=== PATIENT | female | born 1965 | race Caucasian/White ===

== ENCOUNTER → 2018-07-17 15:49 | Outpatient (CLI) | payer BC, SELFPAY ==
--- NOTE | 2018-07-17 16:02 | MM_ITS ---
===MM Dig screening mamm BI w/CAD ORDERING PHYSICIAN : Denise Lechuga MD PATIENT AGE: 53 years GENDER: Female COMPARISON: Film screen mammogram February 2004 & November 2009 bilateral digital mammogram INDICATION: Routine: SCREENING. No hormones. No new complaints . previous excisional biopsy at 11:00 right breast. ... Noncontributory family history. TECHNIQUE: Standard CC and MLO images were obtained. R2 CAD reviewed. FINDINGS: Mild/Moderate density breast,, only slightly decreases sensitivity of mammography. But overall slight aggressive fatty replacement since prior studies. No suspicious nor dominant mass. No suspicious calcifications. No new findings of significant concern.. Similar overall fibroglandular patterns since previous available film screen mammogram studies\ RIGHT BREAST:Stable right breast with no significant new findings. Follow-up in one year. LEFT BREAST:No new areas of significant concern. Area of minimal density at the cc view dissipates on the axillary cc view ===== IMPRESSION: Stable bilateral mammogram. No new findings of significant concern Recommended and encouraged bilateral follow-up in one year for ongoing evaluation in this patient BI-RADS Category: 2 Benign Finding(s) RECOMMENDED FOLLOW-UP: 1YR 1 YEAR FOLLOW-UP (A letter has been sent to the patient regarding results of the study.)
--- NOTE | 2018-07-17 16:02 | XR_ITS ---
XR DEXA axial skeleton HISTORY: ITS.REASON: OSTEOPENIA ORDERING PHYSICIAN: Denise Lechuga MD PATIENT AGE: 53 years COMPARISON: None FINDINGS: The BMD measured at the Left femoral neck is 0.983 g/cm squared with a T score of -0.4. This is considered Normal according to the World Health Organization criteria. Fracture risk is Low. L1 L4 density has a normal T score of 2.6 IMPRESSION: Normal bone density with low fracture risk. Recommend follow-up exam June 2020
== END ==
PROVIDERS: PCP Family Medicine; Visit Provider Family Medicine
DX: Z12.31 Encounter for screening mammogram for malignant neoplasm of breast (principal); N60.19 Diffuse cystic mastopathy of unspecified breast; M85.89 Other specified disorders of bone density and structure, multiple sites
CPT/HCPCS: 77067; 77080

== ENCOUNTER → 2021-11-03 09:58 | Outpatient (CLI) | payer BC, SELFPAY ==
--- NOTE | 2021-11-03 10:05 | MM_ITS ---
PROCEDURE INFORMATION: Exam: MG Bilateral Screening 3D Mammography Exam date and time: 11/03/2021 9:59 AM Age: 56 years old Clinical indication: Screening examination TECHNIQUE: Imaging protocol: Bilateral Screening tomosynthesis and 2D mammography including computer-aided detection (CAD) when performed. COMPARISON: MG [facility] MM Dig screening mamm BI w/CAD 07/17/2018 4:16 PM FINDINGS: MAMMOGRAPHY: Breast composition: There are scattered areas of fibroglandular density. Mass: None. Architectural distortion: None. Calcifications: No suspicious calcifications. Asymmetric density: None. Skin thickening: None. Axillary adenopathy: None. IMPRESSION: No mammographic evidence of malignancy. Annual screening is recommended unless otherwise clinically indicated. ASSESSMENT: BI-RADS Category 1: Negative
--- NOTE | 2021-11-03 10:29 | XR_ITS ---
FINAL REPORT TECHNIQUE: Bone densitometry calculations of the lumbar spine and right hip were obtained. CLINICAL HISTORY: . post menopausal FINDINGS: DEXA BONE DENSITY AXIAL SKELETON Using L1-4, the bone mineral density of the spine is 0.198 g/cm2, corresponding to T-score of 1.4. Using the right hip, the bone mineral density of the femoral neck is 0.811 g/cm2, corresponding to a T-score of -0.3 NOTE: T-score: Standard deviation compared with peak bone mass of young adult mean. *Following the recommendations of the International Society of Bone densitometry, classification of hip BMD is based on the lower of two T-scores; total hip or femoral neck. IMPRESSION: Normal bone mineral density of the lumbar spine and hip. Reviewed, Interpreted and Dictated by Phill Davis III, MD Transcribed by Tanya Underwood Authenticated and [facility]
== END ==
PROVIDERS: PCP Family Medicine; Visit Provider Family Medicine
DX: Z12.31 Encounter for screening mammogram for malignant neoplasm of breast (principal); Z78.0 Asymptomatic menopausal state
CPT/HCPCS: 77063; 77067; 77080

== ENCOUNTER → 2022-06-08 15:46 | Outpatient (CLI) | payer BC, SELFPAY ==
[2022-06-08 16:21] LABS: Potassium 4.5 mmoL/L (3.5-5.1)
== END ==
PROVIDERS: PCP Family Medicine; Visit Provider Ophthalmology
DX: Z01.812 Encounter for preprocedural laboratory examination (principal)
CPT/HCPCS: 36415; 84132

== ENCOUNTER 2023-12-25 08:48 | Outpatient (CLI) | payer BC, SELFPAY ==
--- NOTE | 2023-12-25 | CA_ITS ---
APPROVED REPORT Exam: Exercise Treadmill Technologist: Diane Banuelos Ht: 5 ft 4 in Wt: 190 lbs BSA: 1.91 m2 HR: 67 bpm BP: 118/85 mmHg Indications: Essential Hypertension Medical History Medications: Levothyroxine,,,,, Metoprolol,,,,, CeleBREX,,,,, BuPROPRION,,,,, Stress Test Details Test: Jamie Protocol HR Resting HR: 69 bpm Max Heart Rate (APMHR): 162 bpm Max HR Achieved: 134 bpm Target HR (85% APMHR): 138 bpm % of APMHR: 83 Recovery HR: 74 bpm HR response to stress: Blunted HR response to stress BP Resting BP: 118.0/85.0 mmHg Max BP: 155.0/84.0 mmHg Recovery BP: 130.0/72.0 mmHg BP response to stress: Normal blood pressure response to stress. ECG Resting ECG: NSR Stress EC mm upsloping ST depression Arrhythmia: None Clinical Exercise duration: 06:19 min Highest Stage Achieved: Exercise capacity: 7.0 METs Overall Exercise Capacity for Age: Average Stress ECG Conclusion Subotiomal and non-diagnostic study due to inability to achieve target HR. Symptoms: Chest tightness Arrhythmias/Ectopy: None ST-T Changes: [address] depression. Conclusion: This study is considered suboptimal and non-diagnostic due to inability to achieve target HR. ST changes equivocal for ischemia at peak stress. If clinically indicated, alternative evaluation with pharmacologic nuclear stress test is recommended. Test Summary REST . . . . . . . Sitting REST . . . . . . . Standing REST 03:23 0.0 0.0 69 . 118/ 85 . . Stage 1 01:00 0.0 0.0 69 . . . . Stage 1 . . . . . . . Protocol changed to Manual Treadmill Stage 1 . . . . . . . Protocol changed to Jamie Stage 1 02:00 10.0 1.7 78 . . . . Stage 1 03:00 10.0 1.7 98 . . . . Stage 2 01:00 12.0 2.5 112 . 120/ 82 . . Stage 2 02:00 12.0 2.5 120 . 120/ 82 . . Stage 2 03:00 12.0 2.5 127 . 138/ 86 . . Stage 3 . . . . . . . Protocol changed to Manual Treadmill Stage 3 00:19 14.0 3.3 129 . . . Stop exercise at 06:19 RECOVERY 01:00 0.0 0.0 103 . 155/ 84 . . RECOVERY 02:00 0.0 0.0 88 . 155/ 84 . . RECOVERY 03:00 0.0 0.0 77 . 141/ 73 . . RECOVERY 04:00 0.0 0.0 77 . 141/ 73 . . RECOVERY 05:00 0.0 0.0 78 . 130/ 72 . . RECOVERY 05:46 0.0 0.0 82 . 130/ 72 . . Electronically signed by : Izzy Griffin MD 12/31/2023 09:44:30
== END 2023-12-25 23:59 | disposition home or self-care (01) ==
LOC: RT 08:49
PROVIDERS: PCP Family Medicine; Visit Provider Family Medicine
DX: I10 Essential (primary) hypertension (principal)
CPT/HCPCS: 93017; 93018

== ENCOUNTER 2023-12-25 09:35 | Emergency (ER) | payer BC, SELFPAY ==
[2023-12-25] VITALS (7 sets, daily range): BP systolic 108–130; BP diastolic 68–81; PULSE 71–95; RESP 18–19; TEMP 36.6–36.8; O2SAT 95–100; BMI 32.5
--- NOTE | 2023-12-25 09:41 | XR_ITS ---
FINAL REPORT CLINICAL HISTORY: cough, choking COMPARISON: None FINDINGS: Two views of the chest were obtained. The heart size and pulmonary vascularity are within normal limits. The mediastinum is normal. No acute pulmonary abnormality is identified. There is no pneumothorax. The bony thorax is intact. Postoperative changes are noted in the lower cervical region. IMPRESSION: No active cardiopulmonary disease. Reviewed, Interpreted and Dictated by Phill Davis III, MD Transcribed by Christina Butler Authenticated and [facility]
--- NOTE | 2023-12-25 09:47 | ECG_ITS ---
APPROVED REPORT Exam: Resting ECG HR:74 bpm ECG Measurements Heart Rate 74 AXES OK 225 P 69 QRSd 107 QRS -28 QT 388 T 51 QTc 415 Conclusion SINUS RHYTHM WITH FIRST DEGREE AV BLOCK BORDERLINE LEFT AXIS DEVIATION [QRS AXIS < -20] LOW QRS VOLTAGE IN PRECORDIAL LEADS [QRS DEFLECTION < 1.0 mV IN CHEST LEADS] PATTERN CONSISTENT WITH PULMONARY DISEASE ABNORMAL ECG Electronically signed by : SUYAPA KAUR, 12/25/2023 15:28:58
[2023-12-25] MEDS: LIDOCAINE 2% 5ML PF VIAL 5 ML IH (09:49)
[2023-12-25] MEDS: IPRATROPIUM/ALBUTEROL 3 ML NEB 9 ML IH (09:50)
[2023-12-25] MEDS: FAMOTIDINE 20MG/2ML VIAL 20 MG IV (10:02)
[2023-12-25] MEDS: diphenhydrAMINE 50MG/ML VIAL 50 MG IV (10:06)
[2023-12-25] MEDS: DEXAMETHASONE 4MG/ML 1ML VIAL 10 MG IV (10:08)
--- NOTE | 2023-12-25 10:24 | ED_ITS ---
Discharge Plan Disposition Patient Disposition: Home, Self-Care Condition: Good Referrals Follow up/Referrals: Denise Lechuga MD [Primary Care Provider] - See instructions Activity Restrictions/Add. Instructions Additional Instructions/Restrictions: You were evaluated in the emergency department today. Please follow-up closely with your primary care provider and on call pharmacy technician. Return to the emergency department for new or worsening symptoms Clinical Impressions Clinical Impression: Cough Instructions Patient Instructions: Cough Print Language Print Language: Frisian Discharge ED Provider: Stefanie Alexander General Adult HPI General Chief complaint: Recheck/Abnormal Lab/Rx Stated complaint: chocking soa Time Seen by Provider: 12/25/23 09:41 Mode of Arrival: Wheelchair Source of Information: Patient Limitations: No Limitations Description of Symptoms (Recalled from ER Triage Doc. by RN): pt presents to ED from stress test. pt reports that she was done with a stress test and began to feel like something was in her throat. pt had no meds with the stress test. pt reports no allergies that she knows of. she did take her morning medications. History of Present Illness HPI narrative: This patient is a 58-year-old female with a history of hypertension, hyperlipidemia, and extensive family cardiac history presenting to the emergency department for evaluation with concern for choking. Patient reports that she was having an exercise stress test done and began to feel a sensation of something in her throat. She started coughing and clearing her throat repeatedly, but she could not get this under control. Symptoms were persistent, so they brought her down for evaluation. She was not given any medications and denies any new known exposures this morning. No other concerns noted, such as chest pain, abdominal pain, vomiting, or other concerns. Nothing like this is ever happened before. History is difficult to obtain for her because of frequent coughing and gagging, but her confirms history. Related Data Allergies Allergy/AdvReac Type Severity Reaction Status Date / Time No Known Allergies Allergy Verified 12/25/23 09:44 [facility] Disclaimer: The information contained in this section may have been updated after the patient was seen, as this information can be updated by other users. Social History Smoking Status: Never smoker alcohol intake: never current occupational status: employed Travel in the last 8 weeks: None ROS Obtained: Yes All systems reviewed & no additional complaints except as documented Physical Exam General General appearance: alert Comment: Actively coughing and gagging Head Head exam: atraumatic and normocephalic Eye Eye exam: Present normal appearance, PERRL and EOMI ENT ENT exam: Present normal exam, normal oropharynx, mucous membranes moist and n ormal external ear exam Neck Neck exam: Present normal inspection, full ROM and trachea midline; Absent tenderness Chest Chest inspection: Present normal inspection and symmetric chest wall rise; Absent tenderness Respiratory Respiratory exam: Present normal lung sounds bilaterally and other (Actively coughing and gagging, but patient has normal lung sounds with no wheezes, stridor, or other concern); Absent respiratory distress, wheezes, stridor or accessory muscle use Cardiovascular Cardiovascular exam: Present regular rate and normal rhythm Abdominal Exam Abdominal exam: Present soft; Absent distention, tenderness or guarding Extremities Exam Extremities exam: Present normal inspection, full ROM and normal capillary refill; Absent tenderness or edema Back Exam Back exam: Present normal inspection and full ROM; Absent tenderness Neurological Exam Neurological exam: Present alert, oriented X3, CN II-XII intact and normal gait; Absent motor sensory deficit Psychiatric Psychiatric exam: Present normal affect and normal mood Skin Skin exam: Present warm and dry Medical Decision Making Medical Records Medical records reviewed: Yes I reviewed the patient's medical records. Aki Inquiry Pt receiving controlled substance: No Vital Signs: 12/25/23 09:36 12/25/23 09:50 12/25/23 10:01 Temperature 97.9 F Temperature Source Oral Pulse Rate 74 78 Pulse Rate [Left Radial] 95 H Respiratory Rate 19 Blood Pressure 116/75 Blood Pressure [Right Arm] 130/81 Blood Pressure Mean 92 Blood Pressure Mean [Right Arm] 97 Blood Pressure Source Blood Pressure Position 02 Sat by Pulse Oximetry 100 100 Oxygen Delivery Method Room Air 12/25/23 10:14 12/25/23 10:30 12/25/23 11:00 Temperature Temperature Source Pulse Rate 78 71 78 Pulse Rate [Left Radial] Respiratory Rate Blood Pressure 122/77 118/81 Blood Pressure [Right Arm] Blood Pressure Mean 87 88 Blood Pressure Mean [Right Arm] Blood Pressure Source Blood Pressure Position 02 Sat by Pulse Oximetry 98 96 Oxygen Delivery Method 12/25/23 13:20 Temperature 98.2 F Temperature Source Oral Pulse Rate 72 Pulse Rate [Left Radial] Respiratory Rate 18 Blood Pressure 108/68 L Blood Pressure [Right Arm] Blood Pressure Mean Blood Pressure Mean [Right Arm] Blood Pressure Source Automatic Cuff Blood Pressure Position Sitting 02 Sat by Pulse Oximetry Oxygen Delivery Method Room Air Lab Data Lab results reviewed: Yes I reviewed the patient's lab results. Orders (Tests/Meds): ED MEDICATIONS Discontinued Medications Generic Name Dose Route Start Last Admin Trade Name Sanjivq PRN Reason Stop Dose Admin Albuterol/Ipratropium 9 ml 12/25/23 09:49 12/25/23 09:50 Ipratropium/Albuterol 3 Ml Neb 12/25/23 09:50 9 ml ONCE ONE Administration Dexamethasone Sodium Phosphate 10 mg 12/25/23 09:42 12/25/23 10:08 Dexamethasone 4mg/Ml 1ml Vial IV 12/25/23 09:43 10 mg ONCE ONE Administration Diphenhydramine HCl 50 mg 12/25/23 09:44 12/25/23 10:06 Diphenhydramine 50mg/Ml Vial IV 12/25/23 09:45 50 mg ONCE ONE Administration Famotidine 20 mg 12/25/23 09:44 12/25/23 10:02 Famotidine 20mg/2ml Vial IV 12/25/23 09:45 20 mg ONCE ONE Administration Lactated Ringer's 1,000 mls @ 999 mls/hr 12/25/23 10:16 12/25/23 10:26 Lactated Ringer's 1000 Ml Bag IV 12/25/23 11:16 999 mls/hr .Q1H1M ONE Administration Lidocaine HCl 5 ml 12/25/23 09:41 12/25/23 09:49 Lidocaine 2% 5ml Pf Vial 12/25/23 09:42 5 ml ONCE ONE Administration Sodium Chloride 8 ml 12/25/23 09:44 Sodium Chloride 0.9% 10ml Vial IV 01/24/24 09:43 NEEDED PRN dilute pepcid Tetracycl/Hydrocort/Nystatin/Diphen 15 ml 12/25/23 10:16 12/25/23 10:26 Magic Mouthwash 300ml Bottle PO 12/25/23 10:17 15 ml ONCE ONE Administration ORDERS Category Date Time Status CXR 2 view (NOT portable) [XR chest 2V] Stat Exams 12/25/23 09:41 Completed ECG Data Tracing #1: I reviewed this ECG and interpreted as documented below: Normal sinus rhythm with a ventricular rate of 74 bpm. First-degree AV block with a OR interval of [address] changes concerning for isch emia. ECG initial impression date: 12/25/23 ECG initial impression time: 10:06 Medical Decision Narrative: In summary, this patient is a 58-year-old female presenting to the Emergency Department for evaluation of choking after an exercise stress test upstairs. Differential diagnoses considered include but are not limited to choking episode, respiratory failure, allergic reaction, angioedema, aspiration. Ruling out the most morbid conditions drove assessment. It should be noted patient's history includes hypertension and hyperlipidemia which may or may not be at goal therapy. This complicates all aspects of care by increasing patient's risk for morbidity. On exam, the patient is actively coughing and gagging, but vitals are normal on cardiac telemetry. No stridor, wheezing, or other obvious concern. EKG obtained is reassuring. Workup included chest x-ray and EKG. Patient was given DuoNebs x 3 by respiratory therapy with no improvement in her coughing and gagging, so then she was given a lidocaine neb. This did seem to help her symptoms briefly, but then she started coughing and gagging again. She was given IV Benadryl, dexamethasone, Pepcid, bolus of IV fluids, and Magic mouthwash for further symptomatic improvement. She continues to have no angioedema notable on exam and no stridor. Vitals remain normal on cardiac telemetry. I independently interpreted x-ray prior to the radiologist read and noted no acute focal consolidation or pneumothorax. Please see their read for final interpretation. On multiple subsequent reassessments, the patient had improvement in her symptoms and says she was feeling much better. She stated the Magic mouthwash seem to help the most. She has no stridor. Cardiopulmonary exam is normal. Vitals are normal on cardiac telemetry. Given this, I feel that she is appropriate for discharge home with instructions for supportive management and close follow-up with primary care as well as cardiology. Strict return precautions were given. Critical Care Critical Care Time Critical Care Time: No
[2023-12-25] MEDS: MAGIC MOUTHWASH 300ML BOTTLE 15 ML PO (10:26)
[2023-12-25] MEDS: LACTATED RINGERS 1000ML 1,000 ML 999 ML IV (10:26)
== END 2023-12-25 13:20 | disposition home or self-care (01) ==
PROVIDERS: Emergency Provider Emergency Medicine; PCP Family Medicine
DX: R05.8 Other specified cough (principal); I44.0 Atrioventricular block, first degree
CPT/HCPCS: 71046; 93005; 96361; 96374; 96375; 99284; J1100; J1200; J7120; J7620; S0028

== ENCOUNTER 2024-01-29 06:27 | Outpatient (CLI) | payer BC, SELFPAY ==
--- NOTE | 2024-01-29 | CA_ITS ---
APPROVED REPORT Exam: Pharmacologic Technologist: Idalmis Burgos, Ht: 5 ft 5 in Wt: 197 lbs BSA: 1.97 m2 HR: 62 bpm BP: 119/82 mmHg Medical History Medications: Metoprolol,,,,, Atorvastatin,,,,, HCTZ,,,,, BuPROPION,,,,, Celecoxib,,,,, Diloxetine,,,,, Stress Test Details Test: LEXISCAN Reason for pharmacologic stress test: physical limitation. HR Resting HR: 63 bpm Max Heart Rate (APMHR): 162 bpm Max HR Achieved: 87 bpm Target HR (85% APMHR): 138 bpm % of APMHR: 54 Recovery HR: 69 bpm BP Resting BP: 119.0/82.0 mmHg Max BP: 128.0/77.0 mmHg Recovery BP: 128.0/77.0 mmHg ECG Resting ECG: SR, First-degree AV block Stress ECG: No significant ST changes Arrhythmia: None Clinical Exercise duration: 04:01 min Highest Stage Achieved: Exercise capacity: 1.0 METs Stress ECG Conclusion Symptoms: Chest pressure, tightness, anxious. Arrhythmias/Ectopy: None. ST-T Changes: No significant ST changes Conclusion: EKG unremarkable due to Lexiscan infusion. Myoview images reported separately. Test Summary REST . . . . . . . Resting REST 07:28 . . 63 . 119/ 82 . . Stage 1 . . . . . . . Myoview Injected Stage 1 01:00 . . 76 . . . . Stage 2 01:00 . . 81 . 127/ 94 . . Stage 3 01:00 . . 76 . 115/ 86 . . Stage 4 01:00 . . 75 . 125/ 85 . . Stage 4 01:01 . . 75 . 125/ 85 . Stop exercise at 04:01 RECOVERY 01:00 . . 71 . 123/ 80 . . RECOVERY 02:00 . . 74 . 122/ 82 . . RECOVERY 03:00 . . 74 . 128/ 77 . . Electronically signed by : Izzy Griffin MD 01/30/2024 11:57:29
--- NOTE | 2024-01-29 06:37 | NM_ITS ---
APPROVED REPORT Exam: Nuclear Stress Test Indication: Fatigue, HTN, High cholesterol, Family history Patient Location: Outpatient Stress Tech: Idalmis Dunn [place] Tech:Alisha West, ARRT, RT (R)(N) Ht: 5 ft 5 in Wt: 197 lbs Bra Size: 36B HR: 63 bpm BP: 119/82 mmHg BSA: 1.97 m2 Rhythm: NSR TID: 1.27 BMI: 32.7 History: Fatigue, HTN, High cholesterol, Family history Procedure: Patient received 0.4 mg of intravenous Lexiscan, resting heart rate 63 bpm, resting blood pressure 119/82 mmHg, with Lexiscan maximum heart rate achieved was 87 bpm which is % of the maximum predicted heart rate and blood pressure was 128/77 mmHg. With Lexiscan, patient denied any complaint of chest pain. Cardiac Stress and Resting SPECT Images: Cardiac Stress and Resting SPECT images were obtained using technetium 99m Myoview 31.1 mCi stress and 9.79 mCi at rest. Resting and stress imaging in supine and prone positions demonstrate no evidence of fixed or reversible perfusion defects. There is increase in transit ischemic dilatation ratio (TID 1.27), suggestive of possible multivessel disease or balanced ischemia. Gated imaging demonstrates normal global and regional LV systolic function. LVEF is calculated at 60%. Conclusion: No evidence of fixed or reversible perfusion defects. There is increase in transit ischemic dilatation ratio (TID 1.27), suggestive of possible multivessel disease or balanced ischemia (non-specific finding). Gated imaging demonstrates normal global and regional LV systolic function. LVEF is calculated at 60%. In the setting of presence of TID with normal LV function, further evaluation with alternative imaging modalities (i.e. CCTA) may be suggested prior to proceeding with invasive coronary angiography to evaluate for multivessel disease and/or calcification. Electronically signed by : Izzy Griffin MD 01/30/2024 12:00:25
--- NOTE | 2024-01-29 06:37 | CT_ITS ---
APPROVED REPORT Sales Incentive Analyst: CLINICAL INDICATION Chest pain TECHNIQUE Image Acquisition: A 128 slice MDCT scanner (prolliea View) was used for data acquisition. A noncontrast coronary calcium scan was performed. A CT attenuation threshold of 130 Hounsfield units (HU) was used for the detection of calcium in contiguous voxels of 1 sq mm in area to be counted as individual lesions. A tube voltage of 120 KVp was used. The patient received no medications prior to the coronary calcium CT. Image Reconstruction Transaxial images were reconstructed at 0.67 mm slide thickness. Data was reviewed interactively on an advanced workstation capable of 2 and 3-dimensional displays in all conventional reconstruction formats, including multiplanar reformations, maximum intensity projections, curved multiplanar reformations, and volume rendered reconstructions. When applicable, selected routine images describing the relevant coronary anatomy and pathology were saved and sent to PACS. Complications None Technical Quality Overall image quality was good. Total DLP (Dose-Length Product) is 143.9 mGy-cm. The reported value represents the total of one or more individual components during the CT acquisition of this date and at this time, and as such, the same value may appear in more than one CT report depending on the interpreting/reporting physicians. COMPARISON None FINDINGS CT Coronary Calcium Scoring LMA (Left Main Artery) = 0 LAD (Left Anterior Descending) = 0 LCX (Left Coronary Circumflex) = 0 RCA (Right Coronary Artery) = 0 Total Calcium Score = 0 using the AJ-130 method. IMPRESSION -Coronary artery calcification is absent. -Total Calcium Score (Agatston Score) = 0 using the AJ-130 method. The interpretation of the calcium heart score is based on the following continuum*: 0 = no calcified plaque detected (risk of coronary artery disease is very low ??? less than 5%) 1-10 = calcium detected in extremely minimal levels (risk of coronary diseases is still low ??? less than 10%) 11-100 = mild levels of plaque detected with certainty (mild or minimal narrowing of heart arteries is likely) 101-400 = definite,at least moderate levels of plaque detected (relatively high risk of a heart attack within 3-5 years) >401-999 = extensive levels of plaque detected (high risk of heart attack, high levels of vascular disease are present, high likelihood of at least one significant coronary narrowing) *The calcium heart score quantifies the burden of coronary calcification/plaque in the coronary arteries. The calcium heart score does not evaluate the presence or the burden of non-calcified (i.e. soft) plaque. The coronary and cardiac findings of this Coronary Calcium CT were reviewed, reported, and signed by Jaun Griffin MD (Sanitary Napkin Machine Tender). Conclusion Electronically signed by : Izzy Griffin MD 01/30/2024 12:16:46
[2024-01-29] MEDS: REGADENOSON 0.4MG/5ML SYRINGE 0.4 MG IV (08:20)
[2024-01-29] MEDS: SODIUM CHLORIDE 0.9% 10ML SYR (RAD ONLY) 10 ML IV ×2 (08:20)
[2024-01-29] MEDS: ISOTOPE MYOVIEW (PER STUDY) 1 DOSE IV (08:20)
== END 2024-01-29 23:59 | disposition home or self-care (01) ==
PROVIDERS: PCP Family Medicine; Visit Provider Family Medicine
DX: I10 Essential (primary) hypertension (principal); R53.83 Other fatigue; Z13.6 Encounter for screening for cardiovascular disorders
CPT/HCPCS: 75571; 78452; 93017; 93018; A9502; J2785

== ENCOUNTER 2024-04-22 15:19 | Outpatient (CLI) | payer BC, SELFPAY ==
--- NOTE | 2024-04-22 15:25 | MR_ITS ---
FINAL REPORT CLINICAL HISTORY: lower back pain with right leg numbness COMPARISON: None FINDINGS: Multiplanar MR imaging of the lumbar spine was performed without and with contrast. On the sagittal T2-weighted images, disc degeneration is seen throughout. Mild anterolisthesis of L4 on L5. There is no evidence of fracture. Several hemangiomas are noted. The conus is seen at approximately the L1 level and has an unremarkable appearance. T12-L1: Annular disc bulge, facet arthropathy, and osteophytes. Moderate right and mild left neuroforaminal narrowing. L1-2: Annular disc bulge, facet arthropathy, and osteophytes. Small central disc protrusion. Left foraminal disc protrusion. Moderate right and severe left neuroforaminal narrowing. L2-3: Annular disc bulge, facet arthropathy, and osteophytes. Left foraminal disc protrusion. Mild central canal stenosis with AP diameter of the thecal sac of 8 mm. Mild right and moderate left neuroforaminal narrowing. L3-4: Annular disc bulge and facet arthropathy. Small central disc protrusion. Mild central canal stenosis with AP diameter of the thecal sac of 5 mm. Moderate right and mild left neuroforaminal narrowing L4-5: Annular disc bulge, facet arthropathy, and osteophytes. Mild central canal stenosis with AP diameter of the thecal sac of 8 mm. Mild right and moderate left neuroforaminal narrowing. L5-S1: Annular disc bulge, facet arthropathy, and osteophytes. Moderate bilateral neuroforaminal narrowing. No abnormal contrast enhancement is identified. IMPRESSION: Multilevel mild degenerative disc disease and spondylosis with areas of neural foraminal narrowing as described. Disc protrusions at L1-2, L2-3, and L3-4. Central canal stenosis as described at L2-3, L3-4, and L4-5. Reviewed, Interpreted and Dictated by Phill Davis III, MD Transcribed by Ynes Winston Authenticated and [facility]
[2024-04-22 15:55] LABS: Blood Urea Nitrogen 17 mg/dl (7-17); Estimated Glomerular Filt Rate 57 ml/min (>60); GFR (African American) 69 ML/MIN (>60)
[2024-04-22] MEDS: SODIUM CHLORIDE 0.9% 10ML SYR (RAD ONLY) 10 ML IV (16:27)
[2024-04-22] MEDS: GADOTERIDOL INJ 20ML SYRINGE 17 ML IV (16:27)
== END 2024-04-22 23:59 | disposition home or self-care (01) ==
PROVIDERS: PCP Family Medicine; Visit Provider Family Medicine
DX: M48.07 Spinal stenosis, lumbosacral region (principal)
CPT/HCPCS: 36415; 72158; 82565; 84520; A9576

== ENCOUNTER 2024-12-22 15:03 | Outpatient (CLI) | payer BC, SELFPAY ==
--- OUTSIDE RECORDS SUMMARY | 2024-11-07 09:30 | XMS_ITS | Encounter Summary ---
Author Organization [facility] ystem Address [address] [place] [address] Care Team Providers Care Transformation Consultant Name Role Phone Isaac Lechuga MD Primary Care Provider [phone] Reason for Visit * Reason Comments Osteoarthritis Encounter Details Date Type Department Care Team (Late st Contact Info) Description 11/07/2024 9:30 AM EDT Office Visit [facility] R[facility] [address] [address] David Banuelos MD [address] [id number] Generalized osteoarthrosis, involving multiple sites (Primary Dx); Pain in joints of left hand; Arthralgia of multiple sites; NSAID long-term use; ANKUR positive; History of lumbar fusion Social History Tobacco Use Types Packs/Day Years Used Date Smoking Tobacco: Never Smokeless Tobacco: Never Tobacco Cessation:Counseling Given: Not Answered Alcohol Use Standard Drinks/Week Comments Yes 0 (1 standard drink = 0.6 oz pur e alcohol) 2 glasses a week Comments No Sex and Gender Information Value Date Recorded Sex Assigned at Not on file Legal Sex Female 4:47 PM EDT Gender Identity Not on file Sexual Orientation Not on file documented as of this encounter Last Filed Vital Signs Vital Sign Reading Time Taken Comments Blood Pressure 124/86 11/07/2024 9:31 AM EDT Pulse 67 11/07/2024 9:31 AM EDT Temperature 36.2 C (97.2 F) 11/07/2024 9:31 AM EDT Respiratory Rate - - Oxygen Saturation - - Inhaled Oxygen Concentration - - Weight 85.3 kg (188 lb) 11/07/2024 9:31 AM EDT Height 165.1 cm (5' 5 ) 11/07/2024 9:31 AM EDT Body Mass Index 31.28 11/07/2024 9:31 AM EDT documented in this encounter Progress Notes * David Banuelos MD - 11/07/2024 9:30 AM EDT Images from the original note were not included. Office Follow Up Date: 11/07/2024 Patient Name: Leonarda Alejo Date of : 1965 Referring Physician: No ref. provider found Chief Complaint: Chief Complaint Patient presents with Osteoarthritis History of Present Illness: Leonarda Alejo is a 59 y.o. female who is here today for follow up on joint pain, CMC osteoarthritis, ? of inflammatory arthritis. History: She states that the base of her left thumb in particular is sore with activity. She has some involvement in the right CMC joint as well with pain and stiffness. She does have some bony deformity to the thumb joints, right greater than left. She has stiffness in the morning in her thumb joints, but it only lasts 15-20 minutes in the joints. Celebrex is quite helpful. No particular side effects. Prior injection in CMC joints helped for a few months. No interest in surgical options She has had no features of connective tissue disease. ANKUR mildly positive but DEBBIE panel negative. Thought to be false-positive ANKUR In mid November 2022 she developed new pain stiffness left wrist, left 3rd MCP joint and swelling in the left 5th PIP joint left hand. No swelling in the right hand. Celebrex helps. Interim 05/09/2024: She stopped Plaquenil and increased Celebrex to 200 twice daily to try and simplify her medication regimen. She feels this is working well for her joint pain. No swollen joints inthe hands or wrists. She did fall last week and injured her left knee. The left knee has been sore and she has been hobbling on it. She also has chronic back pain and plans to see a neurosurgeon soonabout this. She had an MRI of the lumbar spine through her PCP along with labs recently Interim 11/07/2024: She had lumbar fusion 08/21/[address] Sexton. Recovering well. Has been off celecoxib and can tell with increased arthralgias base of thumbs. Continues pregabalin. Some numbness in her thighs. History of Present Illness Subjective Review of Systems: Review of Systems Constitutional: Positive for appetite change and fatigue. Negative for chills, fever and unexpectedweight loss. HENT: Positive for rhinorrhea and sinus pressure. Negative for mouth sores and sore throat. Eyes: Negative for pain and redness. Respiratory: Negative for cough and shortness of breath. Cardiovascular: Positive for leg swelling. Negative for chest pain. Gastrointestinal: Positive for constipation. Negative for abdominal pain, blood in stool, diarrhea,nausea, vomiting and GERD. Endocrine: Negative for polydipsia and polyuria. Genitourinary: Positive for decreased urine volume and urgency. Negative for dysuria, genital soresand hematuria. Musculoskeletal: Positive for arthralgias, back pain, gait problem and joint swelling. Negative formyalgias, neck pain and neck stiffness. Skin: Positive for bruise. Negative for rash. Allergic/Immunologic: Positive for environmental allergies. Neurological: Positive for dizziness, weakness, light-headedness, numbness and memory problem. Negative for seizures. Hematological: Negative for adenopathy. Does not bruise/bleed easily. Psychiatric/Behavioral: Positive for decreased concentration, sleep disturbance, depressed mood and stress. The patient is nervous/anxious. Past Medical History: Past Medical History: Diagnosis Date Anxiety and depression Arthritis Chronic kidney disease Hypertension Hypothyroid Kidney stone Osteoarthritis Sinusitis Status post cervical spinal fusion Past Surgical History: Past Surgical History: Procedure Laterality Date ANTERIOR CERVICAL DISCECTOMY W/ FUSION N/A 04/24/2017 Procedure: CERVICAL DISCECTOMY ANTERIOR WITH FUSION C4-7, CAGE PLACEMENT AND ANTERIOR PLATING; Surgeon: Jason Baires MD; Location: [facility]; Service: BACK SURGERY disk replacement per patient HYSTERECTOMY radical KIDNEY STONE SURGERY NASAL SEPTUM SURGERY WISDOM TOOTH EXTRACTION Family History: Family History Problem Relation Age of Onset Heart disease Mother Rheum arthritis Mother Stroke Father Hypertension Father Hypertension Sister Colon cancer Sister Hypertension Brother Social History: Social History Socioeconomic History Marital status: Tobacco Use Smoking status: Never Smokeless tobacco: Never Vaping Use Vaping status: Never Used Substance and Sexual Activity Alcohol use: Yes Comment: 2 glasses a week Drug use: No Sexual activity: Yes Partners: Male Comment: spouse Medications: Current Outpatient Medications: albuterol sulfate HFA 108 (90 Base) MCG/ACT inhaler, Inhale 2 puffs Every 4 (Four) Hours As Needed for Wheezing or Shortness of Air., Disp: 1 inhaler, Rfl: 0 atorvastatin (LIPITOR) 20 MG tablet, Take 1 tablet by mouth Daily., Disp: , Rfl: buPROPion SR (WELLBUTRIN SR) 150 MG 12 hr tablet, Take 1 tablet by mouth Daily., Disp: , Rfl: celecoxib (CeleBREX) 200 MG capsule, Take 1 capsule by mouth 2 (Two) Times a Day As Needed for MildPain., Disp: 180 capsule, Rfl: 1 cetirizine (zyrTEC) 10 MG tablet, Take 1 tablet by mouth Daily As Needed for Allergies., Disp: , Rfl: Diclofenac Sodium (VOLTAREN) 1 % gel gel, Apply topically to the appropriate area as directed See Admin Instructions. apply 2-4 gram by topical route 3-4 times every day to the affected area(s) prn as needed for arthritis, Disp: , Rfl: levothyroxine (SYNTHROID, LEVOTHROID) 25 MCG tablet, take 1 tablet by mouth once daily, Disp: , Rfl: 0 metoprolol succinate XL (TOPROL-XL) 25 MG 24 hr tablet, Take 1 tablet by mouth Daily., Disp: , Rfl:0 pregabalin (LYRICA) 75 MG capsule, Take 1 capsule by mouth 3 (Three) Times a Day., Disp: , Rfl: triamterene-hydrochlorothiazide (MAXZIDE-25) 37.5-25 MG per tablet, Take 1 tablet by mouth Every Morning., Disp: , Rfl: Allergies: No Known Allergies Objective Vital Signs: Vitals: 11/07/24 0931 BP: 124/86 BP Location: Left arm Patient Position: Sitting Cuff Size: Adult Pulse: 67 Temp: 97.2 ??F (36.2 ??C) Weight: 85.3 kg (188 lb) Height: 165.1 cm (65 ) PainSc: 2 Body mass index is 31.28 kg/m??. Physical Exam: Physical Exam MUSCULOSKELETAL: No peripheral synovitis CMC joints with bony enlargement/squaring from OA No redness or warmth to the joints. No fingernail changes. No ulnar deviation. No tenderness of the elbows or shoulders. Negative tender points. No rheumatoid nodules or tophi. Good range of motion neck and back with normal alignment. Tender lumbar spine Tender left knee slight crepitus. No warmth or effusion Complete joint exam was performed including the MCPs, PIPs, DIPs of the hands, wrists, elbows, shoulders, hips, knees and ankles. No soft tissue swelling or tenderness is present except as above. General: The patient is well-developed and well nourished. Cooperative, alert and oriented. Affect is normal. Hydration appears normal. HEENT: Normocephalic and atraumatic. Lids and conjunctiva are normal. Pupils are equal and sclera are clear. Oropharynx is clear NECK neck is supple without adenopathy, masses or thyromegaly. CARDIOVASCULAR: Regular rate and rhythm. No murmurs, rubs or gallops LUNGS: Effort is normal. Lungs are clear bilateral ABDOMEN: Not examined EXTREMITIES: Peripheral pulses are intact. No clubbing. SKIN: No rashes. No subcutaneous nodules. No digital ulcers. No sclerodactyly. NEUROLOGIC: Gait is normal. Strength testing is normal. No focal neurologic deficits Results Review: Labs: Lab Results Component Value Date GLUCOSE 113 (H) 04/25/2017 BUN 13 04/25/2017 CREATININE 0.70 04/25/2017 BCR 18.6 04/25/2017 K 4.4 04/25/2017 CO2 24.0 04/25/2017 CALCIUM 9.1 04/25/2017 Lab Results Component Value Date WBC 11.70 (H) 04/25/2017 HGB 11.8 04/25/2017 HCT 35.4 04/25/2017 MCV 94.4 04/25/2017 PLT 212 04/25/2017 No results found for: SEDRATE No results found for: CRP No results found for: QUANTIFERO , QUANTITB1 , QUANTITB2 , QUANTIFERN , QUANTIFERM , QUANTITBGLDP No results found for: RF No results found for: HEPBSAG , HEPAIGM , HEPBIGMCORE , HEPCVIRUSABY Procedures Assessment / Plan -Arthralgia of multiple sites -Generalized osteoarthritis -Degenerative arthritis lumbar spine status post fusion 08/21/2024 CMC osteoarthritis bilateral hands Lumbar spinal stenosis, disc protrusion pain swelling left hand joints left 5th PIP, left 3rd MCP and left lateral wrist onset mid November 2022. -Negative rheumatoid factor, positive ANKUR/negative DEBBIE -X-ray hands 12/15/22 which shows no acute fracture. Current rx: celecoxib 200 mg twice daily Prior Plaquenil 12/10 and restart 07/14-03/13 (patient stopped on her own as she wanted to simplify medications) Rheumatoid factor has been negative. No psoriasis. No synovitis on exam of peripheral joints Hand pain primarily CMC joints consistent with osteoarthritis Injections bilateral CMC joints June 2023 were of limited help She had lumbar fusion 08/21/[address] Sexton. Recovering well. Has been off celecoxib and can tellwith increased arthralgias base of thumbs. Continues pregabalin per PCP. Some numbness in her thighs. - She stopped Plaquenil on her own as she wanted to simplify her medicine regimen and doing fine off of it - Restart Celebrex 200 mg twice daily which has been very helpful for joint pain historically - Labs ordered for monitoring as below. Celecoxib refilled. 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 Refilled She can alternate the Voltaren gel with Celebrex as needed for osteoarthritis pain in her thumbs We discussed steroid injection bilateral 1st CMC joint She will let us know if she wants to schedule this in the future -Status post lumbar and cervical spinal fusion Neurosurgery Dr sam, Dr. Sexton -NSAID long-term use Risks of NSAIDs discussed including GI upset, GI bleeding, renal and hepatic risks and the risks ofcardiovascular disease and stroke. Warned patient not to take with other NSAIDs including OTC NSAIDs -ANKUR positive +ANKUR 1:160 with negative DEBBIE panel; neg rf, normal uric acid. -Suspect false positive finding There are no clinical features of lupus or connective tissue disease. No Raynaud's, no malar rash, no oral nasal ulcers, no pleurisy/pericarditis, no seizure, no renal or hematologic abnormality. No clotting disorder. An ANKUR test is a non specific test. While it certainly can be positive in conditions like SLE, scleroderma, myositis, Sj??gren's, RA , vasculitis etc.. It can also be positive in patients with thyroid disease, type 1 diabetes, psoriasis, Celiac disease, inflammatory bowel disease, COPD/chronic lungdisease, cancers, etc.. There are also reports of normal/apparently healthy individuals who are incidentally found to have a +ANKUR test. You can also frequently get a false positive ANKUR test. PositiveANA results increase with age. 15% of patients over 65 years of age are ANKUR positive, along with 5%of the general population. handout on positive ANKUR test given. 1. Generalized osteoarthrosis, involving multiple sites 2. Pain in joints of left hand 3. Arthralgia of multiple sites 4. NSAID long-term use 5. ANKUR positive 6. History of lumbar fusion Assessment & Plan Orders Placed This Encounter Procedures CBC Auto Differential Comprehensive Metabolic Panel C-reactive Protein Sedimentation Rate New Medications Ordered This Visit Medications celecoxib (CeleBREX) 200 MG capsule Sig: Take 1 capsule by mouth 2 (Two) Times a Day As Needed for Mild Pain. Dispense: 180 capsule Refill: 1 Follow Up: Return in about 6 months (around 05/09/2025) for Followup STATISTICAL SECRETARY. Discussed plan of care in detail with the patient today. Patient verbalized understanding and agrees. I confirm accuracy of unchanged data/findings which have been carried forward from previous visit. I have updated appropriately those that have changed. David Banuelos MD [facility] [place] documented in this encounter Plan of Treatment Upcoming Encounters Date Type Department Care Team (Late st Contact Info) Description 05/11/2025 1:30 PM EST Office Visit [facility] RHE[facility] [address] [address] Shelly Hurst APRN [address] [address] Scheduled Procedures Name Priority Associated Diagnoses Date/Ti me CV MYELOGRAM LUMBAR SPINE HNP (herniated nucleus pulposus), lumbar Bilateral stenosis of lateral recess of lumbar spine documented as of this encounter Procedures Procedure Name Priority Date/Time Associated Diagnosis Comments SEDIMENTATION RATE Routine 11/07/2024 10 :19 AM EDT Generalized osteoarthrosis, involving multiple sites Arthralgia of multiple sites NSAID long-term use CBC AND DIFFERENTIAL Routine 11/07/2024 10:19 AM EDT C-REACTIVE PROTEIN Routine 11/07/2024 10 :19 AM EDT Generalized osteoarthrosis, involving multiple sites Arthralgia of multiple sites NSAID long-term use COMPREHENSIVE METABOLIC PANEL Routine 11/07/2024 10:19 AM EDT Generalized osteoarthrosis, involving multiple sites Arthralgia of multiple sites NSAID long-term use documented in this encounter Results * CBC & Differential (11/07/2024 10:19 AM EDT) WBC 6.30 3.40 - 10.80 10*3/mm3 [facility] RBC 4.46 3.77 - 5.28 10*6/mm3 [facility] Hemoglobin 13.3 12.0 - 15.9 g/dL [facility] Hematocrit 42.0 34.0 - 46.6 % [facility] MCV 94.2 79.0 - 97.0 fL [facility] MCH 29.8 26.6 - 33.0 pg [facility] MCHC 31.7 31.5 - 35.7 g/dL [facility] RDW 12.5 12.3 - 15.4 % [facility] Platelets 159 140 - 450 10*3/mm3 [facility] Neutrophil Rel % 59.0 42.7 - 76.0 % [facility] Lymphocyte Rel % 29.2 19.6 - 45.3 % [facility] Monocyte Rel % 7.6 5.0 - 12.0 % [facility] Eosinophil Rel % 3.5 0.3 - 6.2 % [facility] Basophil Rel % 0.5 0.0 - 1.5 % [facility] Neutrophils Absolute 3.72 1.70 - 7.00 10*3/mm3 [facility] Lymphocytes Absolute 1.84 0.70 - 3.10 10*3/mm3 [facility] Monocytes Absolute 0.48 0.10 - 0.90 10*3/mm3 [facility] Eosinophils Absolute 0.22 0.00 - 0.40 10*3/mm3 [facility] Basophils Absolute 0.03 0.00 - 0.20 10*3/mm3 [facility] Immature Granulocyte Rel % 0.2 0.0 - 0.5 % [facility] Immature Grans Absolute 0.01 0.00 - 0.05 10*3/mm3 [facility] nRBC 0.0 0.0 - 0.2 /100 WBC [facility] 11/07/2024 10:1 9 AM EDT 11/07/2024 Narrative [facility] ([facility]) - 11/07/2024 8:07 PM EDT Performed at: [address] [place] [address] [id number] Steamer Tender: Lenny Gomez MD, Phone: [phone] Patient Fasting: N us David Banuelos MD LAB BLOOD ORDERABLES Final Result Performing Organization Address City/[facility]/ZIP Co de Phone Number [facility] ([facility]) [address] [id number], [facility] [address] [id number], [place] [phone] * Sedimentation Rate (11/07/2024 10:19 AM EDT) Sed Rate 3 0 - 30 mm/hr [facility] Blood 11/07/2024 10:1 9 AM EDT 11/07/2024 Narrative [facility]) - 11/07/2024 8:07 PM EDT Performed at: [address] [place] [address] [id number] Steamer Tender: Lenny Gomez MD, Phone: [phone] Patient Fasting: N us David Banuelos MD LAB BLOOD ORDERABLES Final Result Performing Organization Address City/[facility]/ZIP Co de Phone Number [facility] ([facility]) [address] [id number], [place] [phone] [facility] [address] [place] [address], * C-reactive Protein (11/07/2024 10:19 AM EDT) [facility] C-Reactive Protein <0.30 0.00 - 0.50 mg/dL [facility] Blood 11/07/2024 10:1 9 AM EDT 11/07/2024 Narrative [facility] ([facility]) - 11/07/2024 8:07 PM EDT Performed at: [address] [place] [address] [id number] Steamer Tender: Lenny Gomez MD, Phone: [phone] Patient Fasting: N David Banuelos MD LAB BLOOD ORDERABLES Final Result [facility]) [address] [place] [address], [facility] [address] [place] [address], * (ABNORMAL) Comprehensive Metabolic Panel (11/07/2024 10:19 AM EDT) [facility] Glucose 96 65 - 99 mg/dL [facility] BUN 11.0 6.0 - 20.0 mg/dL [facility] Creatinine 0.88 0.57 - 1.00 mg/dL [facility] EGFR Result 75.8 >60.0 mL/min/1.7 3 [facility] Comment: GFR Categories in Chronic Kidney Disease (CKD) GFR Category GFR (mL/min/1.73) Interpretation G1 90 or greater Normal or high (1) G2 60-89 Mild decrease (1) G3a 45-59 Mild to moderate decrease G3b 30-44 Moderate to severe decrease G4 15-29 Severe decrease G5 14 or less Kidney failure (1)In the absence of evidence of kidney disease, neither GFR category G1 or G2 fulfill the criteria for CKD. eGFR calculation 2020 CKD-EPI creatinine equation, which does not include race as a factor BUN/Creatinine Ratio 12.5 7.0 - 25.0 [facility] Sodium 139 136 - 145 mmol/L [facility] Potassium 4.6 3.5 - 5.2 mmol/L [facility] Chloride 101 98 - 107 mmol/L [facility] Total CO2 27.3 22.0 - 29.0 mmol/L [facility] Calcium 9.2 8.6 - 10.5 mg/dL [facility] Total Protein 6.5 6.0 - 8.5 g/dL [facility] Albumin 4.3 3.5 - 5.2 g/dL [facility] Globulin 2.2 gm/dL [facility] A/G Ratio 2.0 g/dL [facility] Total Bilirubin 0.4 0.0 - 1.2 mg/dL [facility] Alkaline Phosphatase 138(H) 39 - 117 U/L [facility] AST (SGOT) 23 1 - 32 U/L [facility] ALT (SGPT) 18 1 - 33 U/L [facility] Blood 11/07/2024 10:1 9 AM EDT 11/07/2024 Narrative [facility] ([facility]) - 11/07/2024 8:07 PM EDT Performed at: [address] [place] [address] [id number] Steamer Tender: Lenny Gomez MD, Phone: [phone] Patient Fasting: N David Banuelos MD LAB BLOOD ORDERABLES Final Result Performing Organization Address City/State/[facility] Co de Phone Number [facility] ([facility]) [address] [place] [address], [facility] [address] [place] [address], documented in this encounter Visit Diagnoses Diagnosis Generalized osteoarthrosis, involving multiple sites- Primary Pain in joints of left hand Arthralgia of multiple sites NSAID long-term use Encounter for long-term (current) use of non-steroidal anti-inflammatories ANKUR positive History of lumbar fusion documented in this encounter Care Teams Transformation Consultant Relationship Specialty Start Date End Date Isaac Lechuga MD [address] [facility] [address] [place] [address] PCP - General Family Medicine 11/10/16 documented as of this encounter
--- OUTSIDE RECORDS SUMMARY | 2024-11-27 09:45 | XMS_ITS ---
Author Organization [facility] Address [address] [facility] [address] [facility] [address] [place] [id number] Care Team Providers Care Community Relations Director Name Role Phone Christopher Lechuga Primary Care Provider Jaime Paul Unavailable [phone] Allergies No Known Allergies Results Component Value Reference Range Notes P-Basic Metabolic Panel (BMP ) Reviewed date:12/09/2024 11:31:21 AM Interpretation:Na 134, K+ 5.4 Performing Lab: Notes/Report: Test performed by [facility] [address] [place] [address] , [address], [place] [address] Uziel Rose MD, Cutter Operator Brick CLIA: [id number] Sodium 134 135-145 mmol/L Potassium 5.4 3.5-5.3 mmol/L Chloride 98 97-108 mmol/L CO2 26 20-32 mmol/L Glucose 88 65-99 mg/dL BUN 12 6-20 mg/dL Creatinine 0.92 0.50-1.00 mg/dL Calcium 9.6 8.6-10.4 mg/dL eGFR by Creatinine 72 >59 mL/min/1.73m2 REASON FOR VISIT 2 month f/u, Needs labs, mammogram, & shingles vaccine Medications Medication SIG (Take, Route, Frequency, Duration) Notes Start Date End Date Status Pregabalin 75 MG 1 capsule Orally 3 times a day; Duration: 30 days 11/03/2024 Active buPROPion HCl ER (SR) 150 MG 1 Orally Two times a day; Duration: 30 days Active Metoprolol Succinate ER 25 MG TAKE 1 TABLET BY MOUTH DAILY; Duration: 90 Active DULoxetine HCl 30 MG 1 capsule Orally On ce a day; Duration: 30 day(s) Not-Taking Celecoxib 200 MG 1 cap(s) orally once daily 08/19/2018 Active Atorvastatin Calcium 80 MG TAKE 1 TABLET BY MOUTH EVERY DAY; Duration: 90 days Active Oxazepam 10 MG 1 capsule as needed Orally three times a day as needed; Duration: 30 days 08/18/2024 Active Levothyroxine Sodium 25 MCG TAKE 1 TABLET BY MOUTH DAILY; Duration: 90 Active Maxzide-25 37.5-25 MG 1 tablet in the morning Orally Once a day; Duration: 90 days Active Flonase Allergy Relief 50 MCG/ACT 1 spray in each nostril Nasally Once a day; Duration: 30 day(s) 03/15/2023 Active Cetirizine HCl 10 MG 1 tablet Orally Onc e a day; Duration: 30 day(s) 03/15/2023 Active Vital Signs Blood pressure systolic 120 mm Hg 11/28/19 25 Blood pressure diastolic 90 mm Hg 025 Heart Rate 68 /min 11/27/2024 Height 65 in 11/27/2024 Weight 189.0 lbs 11/27/2024 BMI 31.45 kg/m2 11/27/2024 Encounters Encounter Location Date Provider Diagnosis [facility] [address] [facility] [address] [place] [id number] 11/27/2024 Christopher Lechuga Fusion of spine of lumbar region M43.26 Assessments Encounter Date Diagnosis (ICD Code) Assessment Notes Treatment Notes Treatment Clinical Notes Section Notes 11/27/2024 Fusion of spine of lumbar region (ICD-10 - M43.26) Plan Of Treatment Next Appt Details Follow Up: 2 Months, Reason: Provider Name:Christopher Pierre er, 01/29/2025 02:00:00 PM, [address] [facility], [address], [place], [place], [id number], Progress Notes * AN LOVELACEDOB:1965 (59 yo F)Acc No.[id number]:11/27/2024 Progress Notes Patient: AN LOPEZ Provider: Christopher Lechuga M.D. :1965 A ge:59 Y S ex:Female Date:11/27/2024 Address:[address] [place] [address] [facility], [place], [id number] Subjective: * Chief Complaints: * 1 . 2 month f/u. 2. Needs labs, mammogram, & shingles vaccine. * HPI: Jose washington back: The pt is here for a 2 month follow up from lumbar surgery. Pt states she is doing better. Pt states she has some numbness and pain in the right thigh but improved from before. * ROS: D ERMATOLOGY: no R etienne. n o H chelsey. G ASTROENTEROLOGY: no N ausea. n o V omiting. n o D iarrhea.? U ROLOGY: no D ifficulty urinating. n o B lood in urine. * Medical History: K idney stones, Lumbar Spinal Stenosis, due to L4-5 disc herniation, MRI 12/27, normal GXT cardiolyte 2009, Mar 2020 - COVID-19, Covid vaccine 08/03/20, 09/03/20 Moderna, COVID 19 Booster 03/26/2021, Moderna, Flu shot 2020, COVID 19 Infection, October 01, 2021, Flu shot 2022, Hypertension, Hyperlipidemia, Hypothyroidism, Chronic back pain, Lumbar Disc Disease, Fibrocystic Breast Disease, Depression, Anxiety, Allergic rhinitis. * Surgical History: H ysterectomy , RT Breast Biopsy-benign , Lithotripsy , Sinus 07/15/2007, Disc Surgery, Dr. 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 * Hospitalization/Major Diagno stic Procedure: Sudeep Bowman [facility] 07/2019. * Family History: F ather: , stroke. M other: alive, rheumatoid arthritis. 6 brother(s) , 4 sister(s) . 3 son(s) , 1 daughter(s) . . * Social History: C URRENT TOBACCO USE S moking Status: Patient does NOT smoke. C affeine: yes, frequency:2 diet Mt dew/day. Home smoke detector use: yes. Marital Status: . Past smoking status: no. Alcohol: Yes, maybe twice a year. Travel ouside [place]: no. * Medications: T aking Cetirizine HCl 10 MG Tablet 1 tablet Orally Once a day , Taking Flonase Allergy Relief 50 MCG/ACT Suspension 1 spray in each nostril Nasally Once a day , Taking Maxzide-25 37.5-25 MG Tablet 1 tablet in the morning Orally Once a day , Taking Levothyroxine Sodium 25 MCG Tablet TAKE 1 TABLET BY MOUTH DAILY , Taking Oxazepam 10 MG Capsule 1 capsule as needed Orally three times a day as needed , Taking Atorvastatin Calcium 80 MG Tablet TAKE 1 TABLET BY MOUTH EVERY DAY , Taking Metoprolol Succinate ER 25 MG Tablet Extended Release 24 Hour TAKE 1 TABLET BY MOUTH DAILY , Taking buPROPion HCl ER (SR) 150 MG Tablet Extended Release 12 Hour 1 Orally Two times a day , Taking Pregabalin 75 MG Capsule 1 capsule Orally 3 times a day , Taking Celecoxib 200 MG Capsule 1 cap(s) orally once daily , Not-Taking DULoxetine HCl 30 MG Capsule Delayed Release Particles 1 capsule Orally Once a day , Medication List reviewed and reconciled with the patient * Allergies: N .K.D.A. Objective: * Vitals: W t: 189.0, Temp: 98.3, BP: 120/90, HR: 68, Nurse: CHINYERE, Ht: 65, BMI:31.45. * Examination: G eneral Examination: General Appearance: N AD. H EENT: u nremarkable.?Oral cavity: n o lesions, mucosa moist and WNL, no erythema. N duncan: s upple, no lymphadenopathy. C hest: n ormal shape and expansion. H eart: R SR. L ungs: c lear to auscultation. N eurologic Exam: N ot using cane., patellar r eflexes intact, right a bit less than left. S kin: n ormal, no rash. P eripheral pulses: n ormal . E xtremities: n o leg edema. Assessment: * Assessment: 1. F usion of spine of lumbar region - M43.26 (Primary) Plan: * Treatment: Value Reference Range B UN 12 6-20 - mg/dL * C alcium 9.6 8.6-10.4 - mg/dL * C hloride 98 97-108 - mmol/L * C O2 26 20-32 - mmol/L * C reatinine 0.92 0.50-1.00 - mg/dL * G lucose 88 65-99 - mg/dL * P otassium 5.4 H 3.5-5.3 - mmol/L * S odium 134 L 135-145 - mmol/L * e GFR by Creatinine 72 >59 - mL/min/1.73m2 * see 12/05/24 f/u labs * Procedure Codes: 1 036F TOBACCO NON-USER * Follow Up: 2 Months * Images: Billing Information: * Visit Code: 62567 Office Visit, Est Pt., Level 3. * Procedure Codes: 1036F TOBACCO NON-USER. * Electronic signature of Christopher Lechuga MD on 12/22/2024 at 03:07 PM EDT Sign off status: Pending * Provider: Christopher Lechuga M.D. Date: 0 11/27/2024 Generated for Brittney ramirez/Brendon/eTransmitting on: 0 12/22/2024 03:07 PM EDT History and Physical Notes * Examination Category Sub-Category Detail Notes Category Not es General Examination HEENT: unremarkable Heart: RSR Lungs: clear to auscultatio n Extremities: no leg edema General Appearance: NAD Skin: normal, no rash Neurologic Exam: Not using cane., pat ellar reflexes intact, right a bit less than left Neck: supple, no lymphaden opathy Oral cavity: no lesions, mucosa m oist and WNL, no erythema Peripheral pulses: normal Chest: normal shape and exp ansion
--- OUTSIDE RECORDS SUMMARY | 2024-12-05 04:40 | XMS_ITS ---
Author Organization [facility] Address [address] [facility] [address] [place] [address] [place] [phone] Care Team Providers Care Comb Machine Operator Name Role Phone Christopher Lechuga Primary Care Provider Jaime Paul [phone] Results Component Value Reference Range Notes P-Basic Metabolic Panel (BMP ) Reviewed date:12/12/2024 12:17:40 PM Interpretation:Normal Performing Lab: Notes/Report: Test performed by [employer][note 2] [employer] [address] [place] [address] , [address], [place] [address] Uziel Rose MD, Commercial Door Installer CLIA: [id number] Sodium 136 135-145 mmol/L Potassium 4.5 3.5-5.3 mmol/L Chloride 100 97-108 mmol/L CO2 28 20-32 mmol/L Glucose 93 65-99 mg/dL BUN 14 6-20 mg/dL Creatinine 0.85 0.50-1.00 mg/dL Calcium 9.2 8.6-10.4 mg/dL eGFR by Creatinine 79 >59 mL/min/1.73m2 P-FSH and LH Reviewed date:12/12/2024 12:17:40 PM Interpretation:indicates postmenopause Performing Lab: Notes/Report: Test performed by [employer] [facility][note 2] [employer] [address], [address], [place] [address] Uziel Rose MD, Commercial Door Installer CLIA: [id number] Luteinizing Hormone 42.60 LH Reference Range Men: [...] Interpretation:Normal Performing Lab: Notes/Report: Test performed by [employer], [address] , [address], [place] [address] Uziel Rose MD, Commercial Door Installer CLIA: [id number] Cholesterol 118 <200 mg/dL Triglycerides 77 <150 [...] Interpretation:Normal Performing Lab: Notes/Report: Test performed by [facility] [address] , [address], [place] [address] Uziel Rose MD, Commercial Door Installer CLIA: [id number] TSH 4.05 0.43-5.25 mU/L REASON FOR VISIT [...] confirmed Encounters Encounter Location Date Provider Diagnosis [facility] [address] [facility] [address] [facility] [address] [place] [id number] 12/05/2024 Christopher Lechuga Hyperkalemia E87.5 a nd Chronic fatigue R53.82 Assessments Encounter Date Diagnosis (ICD Code) Assessment Notes Treatment Notes Treatment Clinical Notes Section Notes 12/05/2024 Hyperkalemia (ICD-10 - E87.5) 12/05/2024 Chronic fatigue (ICD-10 - R53.82) Plan Of Treatment Next Appt Details Provider Name:Christopher Pierre er, 01/29/2025 02:00:00 PM, [address] [facility] [address] [facility], [address], [place], [id number], Progress Notes * AN LOVELACEDOB:1965 (59 yo F)Acc No.[id number]:12/05/2024 Patient: AN LOPEZ Provider: Christopher Lechuga M.D. :1965 A ge:59 Y S ex:Female Date:12/05/2024 Address:[address] [place] [address], [id number] Subjective: * Chief Complaints: * 1 . [...] T riglycerides 77 <150 - mg/dL * [facility], IT support 12/09/2024 04:00:07 : This order was created by the Interface. * Images: Billing Information: * Visit Code: * Procedure Codes: * Electronic signature of Christopher Lechuga MD on 12/22/2024 at 03:06 PM EDT Sign off status: Pending * Provider: Christopher Lechuga M.D. Date: 0 12/05/2024 Generated for Brittney ramirez/Brendon/Myleneitting on: 0 12/22/2024 03:06 PM EDT
--- OUTSIDE RECORDS SUMMARY | 2024-12-16 05:50 | XMS_ITS ---
Author Organization [facility] Address [address] [facility] 36 [facility] [address] [place] [id number] Care Team Providers Care Arm Rest Builder Name Role Phone Christopher Lechuga Primary Care Provider Jaime Paul [phone] REASON FOR VISIT due isa, col Encounters Encounter Location Date Provider Diagnosis [facility] [address] [place] [id number] 12/16/2024 Christopher Lechuga Screening for breast cancer Z12.39 Assessments Encounter Date Diagnosis (ICD Code) Assessment Notes Treatment Notes Treatment Clinical Notes Section Notes 12/16/2024 Screening for breast cancer (ICD-10 - Z12.39) Plan Of Treatment Pending Test Test Name Order Date Mammogram 12/16/2024 Next Appt Details Provider Name:Christopher Pierre er, 01/29/2025 02:00:00 PM, [address], [address], [place], [id number], Progress Notes * [place] HERNÁNLISSETDOB:1965 (59 yo F)Acc No.[id number]:12/16/2024 Patient: AN LOPEZ :1965 A ge:59 Y S ex:Female Address:[place] [address] Subjective: * Chief Complaints: * D ue isa, col * Medical History: * Surgical History: * Hospitalization/Major Diagno stic Procedure: * Medications: Objective: * Vitals: * Physical Examination: Assessment: * Assessment: 1. S creening for breast cancer - Z12.39 (Primary) Plan: * Treatment: * Procedure Codes: * true * Date: Generated for Brittney ramirez/Brendon/Artruo on: 0 12/22/2024 03:06 PM EDT
--- NOTE | 2024-12-22 15:06 | MM_ITS ---
PROCEDURE INFORMATION: Exam: MG Bilateral Screening 3D Mammography Exam date and time: 12/22/2024 3:10 PM Age: 59 years old Clinical indication: Screening examination TECHNIQUE: Imaging protocol: Bilateral Screening tomosynthesis and 2D mammography including computer-aided detection (CAD) when performed. COMPARISON: 1. MG MM DIG SCREENING MAMM BI W/CAD 11/03/2021 9:59 AM 2. MG SCBI MM Dig screening mamm BI w/CAD 07/17/2018 4:16 PM FINDINGS: MAMMOGRAPHY: Breast composition: There are scattered areas of fibroglandular density. Mass: No suspicious masses. Architectural distortion: None. Calcifications: No suspicious calcifications. Asymmetric density: None. Skin thickening: None. Axillary adenopathy: None. IMPRESSION: No mammographic evidence of malignancy. Annual screening is recommended unless otherwise clinically indicated. ASSESSMENT: BI-RADS Category 1: Negative.
--- OUTSIDE RECORDS SUMMARY | 2024-12-22 15:06 | XMS_ITS | Clinical Summary ---
Author Organization [employer] ([place], [place], [place], [place]) Address [address] [place] [address] Care Team Providers Care Physical Therapist Assistant Name Role Phone Ritesh Lechuga MD Primary Care Provider [phone] Allergies No known active allergies Medications buPROPion SR (WELLBUTRIN SR) 150 MG 12 hr tablet Take 1 tablet (150 mg total) by mouth daily. Active triamterene-hyd roCHLOROthiazid e (MAXZIDE-25) 37.5-25 mg per tablet Take 1 tablet by mouth every morning. 04/29/2024 Active metoprolol succinate (TOPROL-XL) 25 MG 24 hr tablet Take 1 tablet (25 mg total) by mouth daily. Active levothyroxine (SYNTHROID) 25 MCG tablet Take 1 tablet (25 mcg total) by mouth daily. Active atorvastatin (LIPITOR) 80 MG tablet Take 1 tablet (80 mg total) by mouth nightly. Active pregabalin (LYRICA) 75 MG capsule Take 1 capsule (75 mg total) by mouth 3 (three) times daily. 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 Gender Identity Not on file Sexual Orientation Not on file Last Filed Vital Signs Vital Sign Reading Time Taken Comments Blood Pressure 114/64 08/26/2024 11:11 AM EDT Pulse 92 08/26/2024 11:11 AM EDT Temperature 36.5 C (97.7 F) 08/26/2024 11:11 AM EDT Respiratory Rate 16 08/26/2024 8:26 AM EDT Oxygen Saturation 98% 08/26/2024 11: 11 AM EDT Inhaled Oxygen Concentration - - Weight 84.7 kg (186 lb 12.8 oz) 08/21/2024 6:08 AM EDT Height 165.1 cm (5' 5 ) 08/21/2024 6:08 AM EDT Body Mass Index 31.09 08/21/2024 6:08 AM EDT Plan of Treatment Health Maintenance Due Date Last Done Comments CT Colonography 1965 Colonoscopy 1965 Colorectal Cancer Screening 1965 FOBT/FIT 1965 Fit-DNA (Cologuard) 1965 Sigmoidoscopy 1965 Depression Screening (12+) 1977 HIV Screening 1980 Hepatitis C Screening 1983 Pneumococcal 50+ years (1 of 2 - PCV) 1984 Pap Smear 1986 Breast Cancer Screening 2005 Lipid Panel 2010 Shingles Vaccine (Zoster) (1 of 2) 2015 COVID-19 VACCINE ( season) 2024 03/26/2021, 09/03/2020, 08/03/2020 Influenza Vaccine (#1) 2025 Tobacco Cessation Counseling and Screening (12+) 08/21/2025 08/21/2024 DTAP/TDAP/TD VACCINES (2 - T d or Tdap) 07/03/2028 07/03/2018 Medical Devices Implanted Type Area Med Peds Device Identifier Shelf Expiration Date Model / Serial / Lot Bone Matrx Vivigen Prefilled Bl-1900-001 - [id number] Implanted:Qty: 1 on 08/21/2024 by Lenny Sexton MD at [facility] IMPLANTS N/A: Spine Lumbar LIFENET:LIFENET TRANSPLANT SRV 06/18/2025 BL-1900-001 / [id number] / Fibergraft Mtrx 6.25cc [id number] - [id number] Implanted:Qty: 1 on 08/21/2024 by Lenny Sexton MD at [facility] N/A: Spine Lumbar J &J:DEPUY:DEPUY SPINE 01/15/2027 [id number] / / [id number] Sealant Durasl Spine 5ml [id number] - [id number] Implanted:Qty: 1 on 08/21/2024 by Lenny Sexton MD at [facility] N/A: Spine Lumbar MEDTRONIC MIN INV THERAPY GRP 03/20/[id number] / / [id number] Cage T/Plif 13mm Eit 8d 13/02 [id number] - [id number] Implanted:Qty: 1 on 08/21/2024 by Lenny Sexton MD at [facility] N/A: Spine Lumbar J &J:DEPUY:DEPUY SPINE 03/20/2034 [id number] / / [id number] Cage Eit Plif H 11mm 8d 13/02 [id number] - [id number] Implanted:Qty: 1 on 08/21/2024 by Lenny Sexton MD at [facility] N/A: Spine Lumbar J &J:DEPUY:DEPUY SPINE 09/17/2028 [id number] / / [id number] Scr Spne Don Fix 7x50mm - Implanted:Qty: 5 on 08/21/2024 by Lenny Sexton MD at [facility] N/A: Spine Lumbar J &J:DEPUY:DEPUY SPINE / / Scr Spne Don Fix 7x45mm - [id number] Implanted:Qty: 1 on 08/21/2024 by Lenny Sexton MD at [facility] N/A: Spine Lumbar J &J:DEPUY:DEPUY SPINE / / Mis Alesha Ply Scrw Set Ti - [id number] Implanted:Qty: 6 on 08/21/2024 by Lenny Sexton MD at [facility] N/A: Spine Lumbar J &J:DEPUY:DEPUY SPINE / / Alberto Pre Load 75mm [id number] - [id number] Implanted:Qty: 2 on 08/21/2024 by Lenny Sexton MD at [facility] N/A: Spine Lumbar J &J:DEPUY:DEPUY SPINE / / Insurance BLUE CROSS/BLUE SHIELD Advance Directives For more information, please contact: [phone] * Full Code (Latest Code Status on File) Date Activated Date Inactivated Comments 08/21/2024 10:55 AM 08/26/2024 4:28 PM Care Teams Physical Therapist Assistant Relationship Specialty Start Date End Date Ritesh Lechuga MD [address] [facility] [address] [place] [address] PCP - General Neurology 08/14/24
--- OUTSIDE RECORDS SUMMARY | 2024-12-22 15:06 | XMS_ITS | Clinical Summary ---
[facility] Organization [facility] Address [address] [place] [address] Care Team Providers Care Curriculum Facilitator Name Role Phone Isaac Lechuga MD Primary Care Provider [phone] Allergies No known active allergies Medications metoprolol succinate XL (TOPROL-XL) 25 MG 24 hr tablet Take 1 tablet by mouth Daily. 0 7 Active levothyroxine (SYNTHROID, LEVOTHROID) 25 MCG tablet take 1 tablet by mouth once daily 0 7 Active cetirizine (zyrTEC) 10 MG tablet Take 1 tablet by mouth Daily As Needed for Allergies. Active albuterol sulfate HFA 108 (90 Base) MCG/ACT inhaler Inhale 2 puffs Every 4 (Four) Hours As Needed for Wheezing or Shortness of Air. 1 inhaler 0 Active atorvastatin (LIPITOR) 20 MG tablet Take 1 tablet by mouth Daily. Active Diclofenac Sodium (VOLTAREN) 1 % gel gel Apply topically to the appropriate area as directed See Admin Instructions. apply 2-4 gram by topical route 3-4 times every day to the affected area(s) prn as needed for arthritis Active pregabalin (LYRICA) 75 MG capsule Take 1 capsule by mouth 3 (Three) Times a Day. 4 Active buPROPion SR (WELLBUTRIN SR) 150 MG 12 hr tablet Take 1 tablet by mouth Daily. Active triamterene-hyd rochlorothiazid e (MAXZIDE-25) 37.5-25 MG per tablet Take 1 tablet by mouth Every Morning. 4 Active celecoxib (CeleBREX) 200 MG capsuleIndicati ons:Pain in joints of left hand Take 1 capsule by mouth 2 (Two) Times a Day As Needed for Mild Pain. 180 capsule 1 5 Active Active Problems Problem Noted Date Diagnosed Date Generalized osteoarthrosis, involving multiple s ites 05/09/2024 Pain in joints of left hand 11/06/2023 Assessment & Plan (11/06/2023 4:53 PM EDT): CMC osteoarthritis bilateral hands pain swelling left hand joints left 5th PIP, left 3rd MCP and left lateral wrist onset mid November 2022. Negative rheumatoid factor, positive ANKUR/negative DEBBIE X-ray hands 12/15/22 which shows no acute fracture. Current: Plaquenil 12/18/22 and restart 07/10/2023, celecoxib 200 mg once daily (strong family history kidney disease) *She decreased to once daily Celebrex given her family history of renal disease Hand pain primarily CMC joints consistent with osteoarthritis today. Injections bilateral CMC joints June 2023 were of limited help She ran out of Celebrex in the interim and is having more CMC pain. Also trochanteric bursitis activity. Restart celecoxib once or twice daily. Continue Plaquenil which she does find effective. No side effects. X-ray reviewed hands 12/15/22 which shows no acute fracture. Osteoarthritis changes noted along with soft tissue swelling on hand x-rays. Rheumatoid factor has been negative. No psoriasis. Request labs done at [facility] I have given her repeat lab order to be done prior to follow-up visit Return to clinic 6 months High risk medication use 11/06/2023 Assessment & Plan (11/06/2023 2:24 PM EDT): Plaquenil I discussed the side effects of hydroxychloroquine including but not limited to GI upset, rash, photosensitivity, Hematologic and liver abnormalities and ocular abnormalities and need for frequent eye exam for toxicity monitoring. NSAID long-term use 11/06/2023 Assessment & Plan (11/06/2023 2:24 PM EDT): Risks of NSAIDs discussed including GI upset, GI bleeding, renal and hepatic risks and the risks of cardiovascular disease and stroke. Warned patient not to take with other NSAIDs including OTC NSAIDs ANKUR positive 11/06/2023 Assessment & Plan (11/06/2023 2:24 PM EDT): +ANKUR 1:160 with negative DEBBIE panel; neg rf, normal uric acid. There are no clinical features of lupus or connective tissue disease. No Raynaud's, no malar rash, no oral nasal ulcers, no pleurisy/pericarditis, no seizure, no renal or hematologic abnormality. No clotting disorder. An ANKUR test is a non specific test. While it certainly can be positive in conditions like SLE, scleroderma, myositis, Sj gren's, RA , vasculitis etc.. It can also be positive in patients with thyroid disease, type 1 diabetes, psoriasis, Celiac disease, inflammatory bowel disease, COPD/chronic lung disease, cancers, etc.. There are also reports of normal/apparently healthy individuals who are incidentally found to have a +ANKUR test. You can also frequently get a false positive ANKUR test. Positive ANKUR results increase with age. 15% of patients over 65 years of age are ANKUR positive, along with 5% of the general population. handout on positive ANKUR test given. Reassurance given. 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 [...] wants to schedule this in the future Cervical spondylosis with radiculopathy 04/24/20 17 History of lumbar fusion 04/24/2017 Assessment & Plan (11/06/2023 2:24 PM EDT): Neurosurgery dr sam HTN (hypertension) 04/24/2017 Anxiety and depression 04/24/2017 Hypothyroid 04/24/2017 Bilateral stenosis of lateral recess of lumbar s pine 11/09/2016 Overview (11/09/2016): L4-5 HNP (herniated nucleus pulposus), lumbar 017 Overview (10/19/2016): L3-4 Spinal stenosis, lumbar sami on, without neurogenic claudication 10/19/2016 Encounters Date Type Department Care Team Description 11/10/2024 Results Follow-Up [facility] [address] [place] [phone] David Banuelos MD 11/07/2024 9:30 AM EDT Office Visit [facility] [address] [address] David Banuelos MD Generalized osteoarthrosis, involving multiple sites (Primary Dx); Pain in joints of left hand; Arthralgia of multiple sites; NSAID long-term use; ANKUR positive; History of lumbar fusion 11/07/2024 Travel from Last 3 Months Immunizations Immunization Administration Dates Next Due PPD Test 01/31/2016 Family History Medical History Relation Name Comments Hypertension Brother Hypertension Father Stroke Father Heart disease Mother Rheum arthritis Mother Colon cancer Sister Hypertension Sister Relation Name Status Comments Brother Father Mother Sister Social History Tobacco Use Types Packs/Day Years [...] F) 11/07/2024 9:31 AM EDT Respiratory Rate 19 07/01/2019 9:29 AM EST Oxygen Saturation 96% 07/01/2019 9:29 AM EST Inhaled Oxygen Concentration - - Weight 85.3 kg (188 lb) 11/07/2024 9:31 AM EDT Height 165.1 cm (5' 5 ) 11/07/2024 9:31 AM EDT Body Mass Index 31.28 11/07/2024 9:31 AM EDT Plan of Treatment Upcoming Encounters Date Type Department Care Team (Late st Contact Info) Description 05/11/2025 1:30 PM EST Office Visit [facility] [address] [address] Shelly Hurst APRN [address] [facility] [address] [place] [address] Scheduled Procedures Name Priority Associated Diagnoses Date/Ti me CV MYELOGRAM LUMBAR SPINE HNP (herniated nucleus pulposus), lumbar Bilateral stenosis of lateral recess of lumbar spine Health Maintenance Due Date Last Done Comments Annual Gynecologic Pelvic and Breast Exam 1965 Pneumococcal Vaccine 50+ (1 of 2 - PCV) 1984 MAMMOGRAM 2005 COLOGUARD 2010 COLON CANCER SCREENING 5 YEAR SIGMOIDOSCOPY 2010 COLONOSCOPY 2010 [address] CANCER SCREENING 2010 CT COLONOGRAPHY 2010 FECAL OCCULT BLOOD TEST 2010 FIT Testing (1 year) 2010 ZOSTER VACCINE (1 of 2) 2015 ANNUAL PHYSICAL 10/19/2016 HEPATITIS C SCREENING 10/19/2016 COVID-19 Vaccine ( - season) 2024 INFLUENZA VACCINE 02/18/2025 TDAP/TD VACCINES (2 - Td or Tdap) 07/03/2028 019 Medical Devices Implanted Type Area Alteration Specialist Device Identifier Shelf Expiration Date Model / Serial / Lot Cage Bengal/Std 7d 4mm - [id number] Implanted:Qty: 3 on 04/24/2017 by Jason Baires MD at [facility] Implant DEPUY SPINE [id number] / / Plt Spiro 3lvl 6hl 45mm - [id number] Implanted:Qty: 1 on 04/24/2017 by Jason Baires MD at [facility] Implant DEPUY SPINE [id number] / / Scrw Spiro Alexis Sd 14mm - [id number] Implanted:Qty: 1 on 04/24/2017 by Jason Baires MD at [facility] Implant DEPUY SPINE [id number] / / Scrw Spiro Alexis Sd 15mm - [id number] Implanted:Qty: 7 on 04/24/2017 by Jason Baires MD at [facility] Implant DEPUY SPINE [id number] / / Procedures Procedure Name Priority Date/Time Associated Diagnosis Comments CBC AND DIFFERENTIAL Routine 11/07/2024 10:19 AM EDT SEDIMENTATION RATE Routine 11/07/2024 10 :19 AM EDT Generalized osteoarthrosis, involving multiple sites Arthralgia of multiple sites NSAID long-term use C-REACTIVE PROTEIN Routine 11/07/2024 10 :19 AM EDT Generalized osteoarthrosis, involving multiple sites Arthralgia of multiple sites NSAID long-term use COMPREHENSIVE METABOLIC PANEL Routine 11/07/2024 10:19 AM EDT Generalized osteoarthrosis, involving multiple sites Arthralgia of multiple sites NSAID long-term use from Last 3 Months Results * Sedimentation Rate (11/07/2024 10:19 AM EDT) Sed Rate 3 0 - 30 mm/hr [facility] Blood 11/07/2024 10:1 9 AM EDT 11/07/2024 Narrative [facility]) - 11/07/2024 8:07 PM EDT Performed at: [address] [id number] Forestry Professor: Lenny Gomez MD, Phone: [phone] Patient Fasting: N us David Banuelos MD LAB BLOOD ORDERABLES Final Result [facility] ([facility]) [address] [place] [address], [facility] [address] [place] [address], * CBC & Differential (11/07/2024 10:19 AM [...] - 11/07/2024 8:07 PM EDT Performed at: [address] [place] [address] [address] [place], [place] [id number] Forestry Professor: Lenny Gomez MD, Phone: [phone] Patient Fasting: N us David Banuelos MD LAB BLOOD ORDERABLES Final Result Performing Organization Address [facility] Co de Phone Number [facility]) [address] [place] [address], [facility] [address] [place] [address], * C-reactive Protein (11/07/2024 10:19 AM EDT) [facility] C-Reactive Protein <0.30 0.00 - 0.50 mg/dL [facility] Blood 11/07/2024 10:1 9 AM EDT 11/07/2024 Narrative [facility]) - 11/07/2024 8:07 PM EDT Performed at: [address] [place] [id number] Forestry Professor: Lenny Gomez MD, Phone: [phone] Patient Fasting: N us David Banuelos MD LAB BLOOD ORDERABLES Final Result Performing Organization Address [facility] Co de Phone Number [facility]) [address] [place] [address], [facility] [address] [place] [address], * (ABNORMAL) Comprehensive Metabolic Panel (11/07/2024 10:19 AM EDT) Pathologist [facility] Glucose 96 65 - 99 mg/dL [facility] [...] - 11/07/2024 8:07 PM EDT Performed at: [address] [place] [id number] Forestry Professor: Lenny Gomez MD, Phone: [phone] Patient Fasting: N David Banuelos MD LAB BLOOD ORDERABLES Final Result [facility] ([facility]) [address] [place] [address], [facility] [address] [place] [address], [place] [phone] from Last 3 Months Insurance Advance Directives * Full Code (Latest Code Status on File) Date Activated Date Inactivated Comments 04/24/2017 12:19 PM 04/25/2017 6:16 PM Care Teams Curriculum Facilitator Relationship Specialty Start Date End Date Isaac Lechuga MD [address] [facility] [address] [place] [address] PCP - General Family Medicine 11/10/16
--- OUTSIDE RECORDS SUMMARY | 2024-12-22 15:06 | XMS_ITS | Encounter Summary ---
Author Organization [facility] Address [address] [place] [address] Care Team Providers Care Storage Management Consultant Name Role Phone Isaac Lechuga MD Primary Care Provider [phone] Encounter Details Date Type Department Care Team (Latest Contact Info) Description 11/07/2024 Travel Social History Tobacco Use Types Packs/Day Years Used Date Smoking Tobacco: Never Smokeless Tobacco: Never Alcohol Use Standard Drinks/Week Comments Yes 0 (1 standard drink = 0.6 oz pur e alcohol) 2 glasses a week Comments No Sex and Gender Information Value Date Recorded Sex Assigned at Not on file Legal Sex Female 4:47 PM EDT Gender Identity Not on file Sexual Orientation Not on file documented as of this encounter Plan of Treatment Upcoming Encounters Date Type Department Care Team (Late st Contact Info) Description 05/11/2025 1:30 PM EST Office Visit [facility] [address] [address] Shelly Hurst APRN 330 [facility] [address] [place] [address] Scheduled Procedures Name Priority Associated Diagnoses Date/Ti me CV MYELOGRAM LUMBAR SPINE HNP (herniated nucleus pulposus), lumbar Bilateral stenosis of lateral recess of lumbar spine documented as of this encounter Visit Diagnoses Not on filedocumented in this encounter Care Teams Storage Management Consultant Relationship Specialty Start Date End Date Isaac Lechuga MD [address] [address] [place] [address] PCP - General Family Medicine 11/10/16 documented as of this encounter
--- OUTSIDE RECORDS SUMMARY | 2024-12-22 15:06 | XMS_ITS | Referral Summary ---
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 IMPLANTS N/A: Spine Lumbar LIFENET:LIFENET TRANSPLANT SRV 06/18/2025 [facility]1900-001 / [id number] / Fibergraft Mtrx 6.25cc [id number] - [id number] Implanted:Qty: 1 on 08/21/2024 by Lenny Sexton MD at [facility] N/A: Spine Lumbar J &J:DEPUY:DEPUY SPINE 01/15/2027 [id number] / / [id number] Sealant Durasl Spine 5ml [id number] - [id number] Implanted:Qty: 1 on 08/21/2024 by Lenny Sexton MD at [facility] N/A: Spine Lumbar MEDTRONIC MIN INV THERAPY GRP 03/20/[id number] / / [id number] Cage T/Plif 13mm Eit 8d 13/02 [id number] - [id number] Implanted:Qty: 1 on 08/21/2024 by Lenny Sexton MD at [facility] N/A: Spine Lumbar J &J:DEPUY:DEPUY SPINE 03/20/2034 [id number] / / [id number] Cage Eit Plif H 11mm 8d 13/02 [id number] - [id number] Implanted:Qty: 1 on 08/21/2024 by Lenny Sexton MD at [facility] N/A: Spine Lumbar J &J:DEPUY:DEPUY SPINE 09/17/2028 [id number] / / [id number] Scr Spne Don Fix 7x50mm - [id number] Implanted:Qty: 5 on 08/21/2024 by Lenny Sexton MD at [facility] N/A: Spine Lumbar J &J:DEPUY:DEPUY SPINE / / Scr Spne Don Fix 7x45mm - [id number] Implanted:Qty: 1 on 08/21/2024 by Lenny Sexton MD at [facility] N/A: Spine Lumbar J &J:DEPUY:DEPUY SPINE 5 / / Mis Alesha Ply Scrw Set Ti - [id number] Implanted:Qty: 6 on 08/21/2024 by Lenny Sexton MD at [facility] N/A: Spine Lumbar J &J:DEPUY:DEPUY SPINE / / Alberto Pre Load 75mm - [id number] Implanted:Qty: 2 on 08/21/2024 by Lenny Sexton MD at [facility] N/A: Spine Lumbar J &J:DEPUY:DEPUY SPINE / / Insurance BLUE CROSS/BLUE SHIELD Advance Directives For more information, please contact: [phone] * Full Code (Latest Code Status on File) Date Activated Date Inactivated Comments 08/21/2024 10:55 AM 08/26/2024 4:28 PM Care Teams Ship Carpenter Relationship Specialty Start Date End Date Ritesh Lechuga MD [address] [address] PCP - General Neurology 08/14/24
--- OUTSIDE RECORDS SUMMARY | 2024-12-22 15:06 | XMS_ITS | Encounter Summary ---
Author Organization [facility] ystem Address [address] [place] [address] Care Team Providers Care Indoor Landscaper/Gardener Name Role Phone Isaac Lechuga MD Primary Care Provider [phone] Encounter Details Date Type Department Care Team (Late Contact Info) Description 11/10/2024 Results Follow-Up [facility] [address] [place] [phone] David Banuelos MD [address] [place] [address] [id number] Social History Tobacco Use Types Packs/Day Years [...] Description 05/11/2025 1:30 PM EST Office Visit [facility] [address] [place] [phone] Shelly Hurst APRN [address] [phone] Scheduled Procedures Name Priority Associated Diagnoses Date/Ti me CV MYELOGRAM LUMBAR SPINE HNP (herniated nucleus pulposus), lumbar Bilateral stenosis of lateral recess of lumbar spine documented as of this encounter Visit Diagnoses Not on filedocumented in this encounter Care Teams Indoor Landscaper/Gardener Relationship Specialty Start Date End Date Isaac Lechuga MD 12[address] [facility] [address] [facility] 2 [place] [id number] PCP - General Family Medicine 11/10/16 documented as of this encounter
--- OUTSIDE RECORDS SUMMARY | 2024-12-22 15:08 | XMS_ITS | Clinical Summary ---
Author Organization Healthcare Address [address] [place] [address] Care Team Providers Care Guidance Consultant Name Role Phone Unavailable Primary Care Provider Unavailabl e Family History Medical History Relation Name Comments Cardiac disorder Other Relation Name Status Comments Other Social History Tobacco Use Types Packs/Day Years Used Date Smoking Tobacco: Never Alcohol Use Standard Drinks/Week Comments No 0 (1 standard drink = 0.6 oz pur e alcohol) Comments Unknown Sex and Gender Information Value Date Recorded Sex Assigned at Not on file Legal Sex Female 8:36 PM EDT Gender Identity Not on file Sexual Orientation Not on file Plan of Treatment Health Maintenance Due Date Last Done Comments [facility]-Depression Screening 1965 [facility]-HIV Screening 1965 [facility]-Hepatitis C Screening 1965 [facility]-/Child/Adol SDOH Screenings 1965 [facility]- SDOH Screenings 1983 [facility]-Adult SDOH Screenings 1983 [facility]-DTaP,Tdap,and Td Vaccine s (1 - Tdap) 1984 [facility]-Hepatitis B Vaccines (1 of 3 - 19+ 3-dose series) 1984 CT Colonography 2010 Colonoscopy 2010 FIT-DNA 2010 FIT 2010 FOBT 2010 Sigmoidoscopy 2010 [facility]-Colorectal Cancer Screening 2010 [facility]-Breast Cancer Screening 2015 [facility]-Pneumococcal Vaccine: 50 + Years (1 of 1 - PCV) 2015 [facility]-Zoster Vaccines (1 of 2) 2015 UPD-TOISV-09 Vaccine (1 - 20 24-25 season) 2024 [facility]-Influenza Vaccine (#1) 2025 HPV Vaccines Aged Out No longer eligi ble based on patient's age to complete this topic [facility]-HIB Vaccines Aged Out No longer e ligible based on patient's age to complete this topic [facility]-Hepatitis A Vaccines Aged Out No longer eligible based on patient's age to complete this topic [facility]-IPV Vaccines Aged Out No longer e ligible based on patient's age to complete this topic [facility]-Rotavirus Vaccines Aged Out No lo nger eligible based on patient's age to complete this topic Insurance MADDIE
--- OUTSIDE RECORDS SUMMARY | 2024-12-22 15:08 | XMS_ITS | Patient Health Record ---
Author Organization [facility] Address [address] [facility] [address] [place] [id number] Care Team Providers Care Fertilizer Processing Supervisor Name Role Phone Christopher Lechuga Primary Care Provider Jaime Paul Unavailable [phone] Hemant Velez Unavailable [phone] Allergies No Known Allergies Results Component Value Reference Range Notes P-Basic Metabolic Panel (BMP ) Reviewed date:12/09/2024 11:31:21 AM Interpretation:Na 134, K+ 5.4 Performing Lab: Notes/Report: Test performed by [facility] [address] [place], [place] [address] , [address], [place] [address] Uziel Rose MD, Reworker CLIA: [id number] Sodium 134 135-145 mmol/L Potassium 5.4 3.5-5.3 mmol/L Chloride 98 97-108 mmol/L CO2 26 20-32 mmol/L Glucose 88 65-99 mg/dL BUN 12 6-20 mg/dL Creatinine 0.92 0.50-1.00 mg/dL Calcium 9.6 8.6-10.4 mg/dL eGFR by Creatinine 72 >59 mL/min/1.73m2 P-Basic Metabolic Panel (BMP ) Reviewed date:12/12/2024 12:17:40 PM Interpretation:Normal Performing Lab: Notes/Report: Test performed by [facility] [address] [place], [place] [address] , [address], [place] [address] Uziel Rose MD, Reworker CLIA: [id number] Sodium 136 135-145 mmol/L Potassium 4.5 3.5-5.3 mmol/L Chloride 100 97-108 mmol/L CO2 28 20-32 mmol/L Glucose 93 65-99 mg/dL BUN 14 6-20 mg/dL Creatinine 0.85 0.50-1.00 mg/dL Calcium 9.2 8.6-10.4 mg/dL eGFR by Creatinine 79 >59 mL/min/1.73m2 P-FSH and LH Reviewed date:12/12/2024 12:17:40 PM Interpretation:indicates postmenopause Performing Lab: Notes/Report: Test performed by [facility] [address] [place] [address] , [address], [place] [address] Uziel Rose MD, Reworker CLIA: [id number] Luteinizing Hormone 42.60 LH Reference Range Men: [...] Interpretation:Normal Performing Lab: Notes/Report: Test performed by [facility] [address] [place] [address] [place] [address] Uziel Rose MD, Reworker CLIA: [id number] Cholesterol 118 <200 mg/dL Triglycerides 77 <150 [...] Interpretation:Normal Performing Lab: Notes/Report: Test performed by [facility], [address] , [address], [place] [address] Uziel Rose MD, Reworker CLIA: [id number] TSH 4.05 0.43-5.25 mU/L MRI : spine, lumbosacral wit h and without contrast Reviewed date:05/06/2024 10:23:23 AM Interpretation:Abnormal, see 05/05/24 f/u OV Performing Lab: Notes/Report: Abnormal, see 05/05/24 f/u OV P-Basic Metabolic Panel (BMP ) Reviewed date:04/07/2024 12:31:28 PM Interpretation:K+ 6, gluc 102, Cr 1.01 Performing Lab: Notes/Report: Test performed by [facility] [address] [place] [address] , [address], [place] [address] Uziel Rose MD, Reworker CLIA: [id number] Sodium 143 135-145 mmol/L Potassium 6.0 3.5-5.3 mmol/L Chloride 107 97-108 mmol/L CO2 26 22-32 mmol/L Glucose 102 65-99 mg/dL BUN 18 6-20 mg/dL Creatinine 1.01 0.50-1.00 mg/dL Calcium 9.6 8.6-10.4 mg/dL eGFR by Creatinine 64 >59 mL/min/1.73m2 P-Microalbumin/Creatinine, R andom Urine Sample Reviewed date:01/18/2024 02:25:21 PM Interpretation: Performing Lab: Notes/Report: Test performed by [facility] [address] [place] [address] , [address], [place] [address] Uziel Rose MD, Reworker CLIA: [id number] Albumin/Creatinine Ratio, Urine 5 0-30 ug/mg Microalbumin, Urine, Random 0.5 Creatinine, Urine 93.1 P-Lipid Panel Reviewed date:01/18/2024 02:25:21 PM Interpretation: Performing Lab: Notes/Report: Test performed by [facility] [address] [place] [address] , [address], [place] [address] Uziel Rose MD, Reworker CLIA: [id number] Cholesterol 140 <200 mg/dL Triglycerides 94 <150 mg/dL HDL Cholesterol 53 >39 mg/dL Cholesterol / HDL Ratio 2.64 0.00-4.44 Ratio Non-HDL Cholesterol 87 <130 mg/dL LDL Cholesterol (Calculation) 68 <130 mg/dL LDL Cholesterol Levels* Less than 100 mg/dL Optimal 100 to 129 mg/dL Near Optimal/ Above Optimal 130 to 159 mg/dL Borderline High 160 to 189 mg/dL High 190 mg/dL and above Very High * Categories as recommended by the 2004 ATPIII guidelines LDL/HDL Ratio 1.3 <3.3 Ratio LDL Cholesterol Patient History Test Date: 11/23/2023 LDL Results: 140 Units: mg/dL % Change: - Test Date: 01/17/2024 LDL Results: 68 Units: mg/dL % Change: -51% P-Comprehensive Metabolic Pa apple (CMP) Reviewed date:01/18/2024 02:25:21 PM Interpretation: Performing Lab: Notes/Report: Test performed by [facility], [address] , [address], [place] [address] Uziel Rose MD, Reworker CLIA: [id number] Sodium 139 135-145 mmol/L Potassium 5.3 3.5-5.3 mmol/L Chloride 103 97-108 mmol/L CO2 28 22-32 mmol/L Glucose 100 65-99 mg/dL BUN 17 6-20 mg/dL Creatinine 0.95 0.50-1.00 mg/dL Calcium 9.9 8.6-10.4 mg/dL eGFR by Creatinine 69 >59 mL/min/1.73m2 Protein 6.4 6.0-8.3 g/dL Albumin 4.4 3.5-5.3 g/dL Alkaline Phosphatase 86 35-121 IU/L ALT (SGPT) 16 <5-47 IU/L AST (SGOT) 18 <5-40 IU/L Bilirubin, Total 0.6 <0.2-1.2 mg/dL A/G Ratio 2.2 1.1-2.5 colonoscopy Reviewed date:01/18/2024 02:25:21 PM Interpretation:polyps, pathology pending, f/u 8 months Performing Lab: Notes/Report: polyps, pathology pending, f/u 8 months result: polyps repeat study: 8 months Cardiac Stress Test Non Exer cise (chemical induced)/Cardiolyte Reviewed date:01/31/2024 09:42:11 AM Interpretation:Abnormal Performing Lab: Notes/Report: Abnormal CT Scan : Coronary w/o contr ast (calcium scoring) Reviewed date:01/31/2024 12:43:07 PM Interpretation:Ca Score is 0, normal Performing Lab: Notes/Report: Ca Score is 0, normal H-BUN/CREAT Reviewed date:04/23/2024 11:37:39 AM Interpretation: Performing Lab: Notes/Report: BUN 17 7-17 mg/dl CREATT 1.00 0.52-1.04 mg/dl GFRAA 69 >60 ML/MIN EGFR 57 >60 ml/min Medications Medication SIG (Take, Route, Frequency, Duration) Notes Start Date End Date Status Levothyroxine Sodium 25 MCG TAKE 1 TABLET [...] as needed; Duration: 30 days 08/18/2024 Active Pregabalin 75 MG 1 capsule Orally 3 times a day; Duration: 30 days 11/03/2024 Active buPROPion HCl ER (SR) 150 MG 1 Orally Two times a day; Duration: 30 days Active Celecoxib 200 MG 1 cap(s) orally once daily 08/19/2018 Active Triamterene-HCTZ 37.5-25 MG TAKE 1 TABLET BY MOUTH EVERY DAY IN THE MORNING; Duration: 90 Active Atorvastatin Calcium 80 MG TAKE 1 TABLET BY MOUTH DAILY AT BEDTIME; Duration: 90 Active Cetirizine HCl 10 MG 1 tablet Orally Onc e a day; Duration: 30 day(s) 03/15/2023 Active DULoxetine HCl 30 MG 1 capsule Orally On ce a day; Duration: 30 day(s) Not-Taking Immunizations Vaccine Route Administration Date Status Comme nts COVID 19 Moderna Unknown 08/03/2020 Administered COVID 19 Moderna Unknown 09/03/2020 Administered COVID 19 Moderna Unknown 03/26/2021 Administered Fluzone PF Quad (6-35 months) Unknown 02/22/2023 Administered Hepatitis B (20 and more) Unknown 04/18/1999 Administer ed Hepatitis B (20 and more) Unknown 05/17/1999 Administer ed Hepatitis B (20 and more) Unknown 10/28/1999 Administer ed Tetanus Tdap-Adacel (over 7yrs) IM Intramuscular 07/03/2018 Administered tuberculin (ppd) ID Intradermal 12/21/2004 Administered Problems Problem Type SNOMED Code ICD Code Onset Dates Problem Status W/U Status Risk Notes Problem Essential hypertension (75277400) Essential hypertension (I10) Active confirmed Problem Arthropathy (164193933) 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) Active confirmed Problem Mixed anxiety and depressive disorder (926324587) Depression with anxiety (F41.8) Active confirmed Problem BMI 30+ - obesity (492333624) BMI 32.0-32.9,adult (Z68.32) Active confirmed Problem Memory loss (20570329) Memory loss (R41.3) Active confirmed Problem Pure hypercholesterolemia (020543639) Pure hypercholesterolemia (E78.0) Active confirmed Problem Mixed hyperlipidemia (794984011) Mixed hyperlipidemia (E78.2) Active confirmed Problem Localized, primary osteoarthritis of the hand (221508597) Primary osteoarthritis, right hand (M19.041) Active confirmed Problem Localized, primary osteoarthritis of the hand (657539338) Primary osteoarthritis, left hand (M19.042) Active confirmed Problem Degeneration of cervical intervertebral disc (80872917) Degenerative disc disease, cervical (M50.30) Active confirmed Problem Acquired hypothyroidism (994803810) Acquired hypothyroidism (E03.9) Active confirmed Problem Reactive depression (situational) (89914761) Situational depression (F43.21) Active confirmed Problem Spinal stenosis of lumbosacral region (669858482) Spinal stenosis of lumbosacral region (M48.07) Active confirmed Problem Chronic fatigue syndrome (58363221) Chronic fatigue (R53.82) Active confirmed Problem Insomnia disorder related to another mental disorder (84327505) Psychophysiological insomnia (F51.04) Active confirmed Problem Body mass index 30.0 0 to 34.99 (145280226975205) BMI 31.0-31.9,adult (Z68.31) Active confirmed Problem Displacement of lumbar intervertebral disc without myelopathy (64148067) Protrusion of intervertebral disc of lumbosacral region (M51.27) Active confirmed Problem Disorder of lumbosacral intervertebral disc (418820796) Lumbosacral disc disease (M51.9) Active confirmed Problem Allergic rhinitis (84552350) Allergic rhinitis, unspecified allergic rhinitis trigger, unspecified rhinitis seasonality (J30.9) Active confirmed Problem Lipoma of left lower limb (1955993614626984) Lipoma of left lower extremity (D17.24) Active confirmed Problem Lipoma of right uppe r limb (disorder) (1120465237750578) Lipoma of right upper extremity (D17.21) Active confirmed Problem Fibrocystic breast changes (47924191) Fibrocystic breast disease (FCBD), unspecified laterality (N60.19) Active confirmed Problem Allergic rhinitis (99677536) Non-seasonal allergic rhinitis, unspecified trigger (J30.89) Active confirmed Problem Lipoma (55597967) Multiple lipom as (D17.9) Active confirmed Problem Lipoma of lower limb (432701738) Lipoma of right lower extremity (D17.23) Active confirmed Problem Postprocedural state s (790018583) History of facial surgery (Z98.890) Active confirmed Problem Degeneration of intervertebral disc of lumbar region with discogenic back pain and lower extremity pain (M51.362) Active confirmed Vital Signs Heart Rate 68 /min 11/27/2024 Blood pressure diastolic 90 mm Hg 11/27/2024 Height 65 in 11/27/2024 Blood pressure systolic 120 mm Hg 11/27/2024 Weight 189.0 lbs 11/27/2024 BMI 31.45 kg/m2 11/27/2024 Encounters Encounter Location Date Provider Diagnosis [facility] [address] [place] [id number] 01/17/2024 Hemant Prabhakarberry Essential hypertensi on I10 ; Mixed hyperlipidemia E78.2 and Encounter for screening for coronary artery disease Z13.6 [facility] [address] [place] [id number] 04/04/2024 Christopher Lechuga Spinal stenosis of lumbosacral region M48.07 ; Degeneration of intervertebral disc of lumbar region with discogenic back pain and lower extremity pain M51.362 and Essential hypertension I10 [facility] [address] [place] [id number] 05/05/2024 Christopher Lechuga Protrusion of intervertebral disc of lumbosacral region M51.27 and Spinal stenosis of lumbosacral region M48.07 [facility] [address] [place] [id number] 06/16/2024 Christopher Lechuga Spinal stenosis of lumbosacral region M48.07 ; Degeneration of intervertebral disc of lumbar region with discogenic back pain and lower extremity pain M51.362 and Situational depression F43.21 [facility] [address] [place] [id number] 07/14/2024 Christopher Lechuga Degeneration of intervertebral disc of lumbar region with discogenic back pain and lower extremity pain M51.362 and Spinal stenosis of lumbosacral region M48.07 [facility] [address] [facility] [address] [place] [id number] 09/25/2024 Christopher Lechuga Lumbosacral disc dis ease M51.9 ; Protrusion of intervertebral disc of lumbosacral region M51.27 ; Degeneration of intervertebral disc of lumbar region with discogenic back pain and lower extremity pain M51.362 ; S/P spinal fusion Z98.1 and BMI 31.0-31.9,adult Z68.31 [facility] [address] [place] [id number] 11/27/2024 Christopher Lechuga Fusion of spine of lumbar region M43.26 [facility] [address] [place] [id number] 12/05/2024 Christopher Lechuga Hyperkalemia E87.5 a nd Chronic fatigue R53.82 [facility] [address] [place] [id number] 01/01/2024 Christopher Lechuga Essential hypertensi on I10 [facility] [address] [place], [place] [id number] 01/31/2024 J Ritesh Lechuga [facility] [address] [place] [id number] 04/07/2024 J Ritesh Lechuga Hyperkalemia E87.5 [facility] [address] [place] [id number] 04/28/2024 Christopher Lechuga Essential hypertensi on I10 [facility] [address] [place], [place] [id number] 08/18/2024 Hemant Vale Depression with anxi ety F41.8 [facility] [address] [place], [place] [id number] 11/03/2024 Christopher Lechuga Spinal stenosis of lumbosacral region M48.07 [facility] [address] [place] [id number] 12/16/2024 Christopher Lechuga Screening for breast cancer Z12.39 Assessments Encounter Date Diagnosis (ICD Code) Assessment Notes Treatment Notes Treatment Clinical Notes Section Notes 01/01/2024 Essential hypertension (ICD-10 - I10) 01/17/2024 Essential hypertension (ICD-10 - I10) 01/17/2024 Mixed hyperlipidemia (ICD-10 - E78.2) Stress test report from [facility] reviewed in office today. Recent abnormal lipid panel reviewed 04/04/2024 Spinal stenosis of lumbosacral region (ICD-10 - M48.07) 04/04/2024 Degeneration of intervertebral disc of lumbar region with discogenic back pain and lower extremity pain (ICD-10 - M51.362) 04/07/2024 Hyperkalemia (ICD-10 - E87.5) 04/28/2024 Essential hypertension (ICD-10 - I10) 05/05/2024 Spinal stenosis of lumbosacral region (ICD-10 - M48.07) 05/05/2024 Protrusion of intervertebral disc of lumbosacral region (ICD-10 - M51.27) 06/16/2024 Spinal stenosis of lumbosacral region (ICD-10 - M48.07) 06/16/2024 Degeneration of intervertebral disc of lumbar region with discogenic back pain and lower extremity pain (ICD-10 - M51.362) 07/14/2024 Spinal stenosis of lumbosacral region (ICD-10 - M48.07) 07/14/2024 Degeneration of intervertebral disc of lumbar region with discogenic back pain and lower extremity pain (ICD-10 - M51.362) discussed options with patient and 08/18/2024 Depression with anxiety (ICD-10 - F41.8) 09/25/2024 Protrusion of intervertebral disc of lumbosacral region (ICD-10 - M51.27) 09/25/2024 Lumbosacral disc disease (ICD-10 - M51.9) 11/03/2024 Spinal stenosis of lumbosacral region (ICD-10 - M48.07) 11/27/2024 Fusion of spine of lumbar region (ICD-10 - M43.26) 12/05/2024 Hyperkalemia (ICD-10 - E87.5) 12/05/2024 Chronic fatigue (ICD-10 - R53.82) 12/16/2024 Screening for breast cancer (ICD-10 - Z12.39) 09/25/2024 Degeneration of intervertebral disc of lumbar region with discogenic back pain and lower extremity pain (ICD-10 - M51.362) 06/16/2024 Situational depression (ICD-10 - F43.21) Igor 43:2 01/17/2024 Encounter for screening for coronary artery disease (ICD-10 - Z13.6) 04/04/2024 Essential hypertension (ICD-10 - I10) 09/25/2024 S/P spinal fusion (ICD-10 - Z98.1) Continue present care. 09/25/2024 BMI 31.0-31.9,adult (ICD-10 - Z68.31) Plan Of Treatment Pending Test Test Name Order Date BMP 04/07/2024 EMG/NCV 04/24/2022 Mammogram 12/16/2024 Next Appt Details Provider Name:Christopher Mirzakilo er, 01/29/2025 02:00:00 PM, [address], [address], [place], [place], [id number], Insurance Providers Payer Name Payer Address Payer Phone Subscriber Number Group Number Insured Name Patient Relationship to Insured Coverage Start Date Coverage End Date [employer] [address] [place] [address] [id number] [place], SID Spouse - patient is the spouse of the insured Medications Administered Medication Instructions Date of Administration Dosage Notes B-12 05/15/2022 1 mL Morphine 12/28/2008 4 mg phenergan 25 mg/ml 12/28/2008 25 mg Medical (General) History Medical History History ICD Code kidney stones Lumbar Spinal Stenosis, due to L4-5 disc herniation, MRI 12/27 normal GXT cardiolyte 2009Mar 2020 - COVID-19 Covid vaccine 08/03/20, 09/03/20 Moderna COVID 19 Booster 03/26/2021, Moderna flu shot 2020 COVID 19 Infection, October 01, 2021 Flu shot 2022 Hypertension hyperlipidemia Hypothyroidism chronic back pain Lumbar Disc Disease Fibrocystic Breast Disease depression anxiety allergic rhinitis Surgical History Surgery Date(Month/Year) Hysterectomy RT Breast Biopsy-benign Lithotripsy Sinus 07/15/2007 Disc Surgery, Dr. 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
== END 2024-12-22 23:59 | disposition home or self-care (01) ==
LOC: RAD 15:04
PROVIDERS: PCP Family Medicine; Visit Provider Family Medicine
DX: Z12.31 Encounter for screening mammogram for malignant neoplasm of breast (principal); R92.323 Mammographic fibroglandular density, bilateral breasts
CPT/HCPCS: 77063; 77067

== ENCOUNTER 2025-01-15 08:17 | Outpatient (CLI) | payer BC, SELFPAY ==
--- OUTSIDE RECORDS SUMMARY | 2024-12-05 04:40 | XMS_ITS ---
Author Organization [facility] Address [address] [facility] [address] [place] [address] [place] [id number] Care Team Providers Care Medical Affairs Specialist Name Role Phone Christopher Lechuga Primary Care Provider Jaime Paul [phone] Results Component Value Reference Range Notes P-Basic Metabolic Panel (BMP ) Reviewed date:12/12/2024 12:17:40 PM Interpretation:Normal Performing Lab: Notes/Report: Test performed by [employer] [facility] [employer] [address] , [address], [place] [address] Uziel Rose MD, Mobile Home Technician CLIA: [id number] Sodium 136 135-145 mmol/L Potassium 4.5 3.5-5.3 mmol/L Chloride 100 97-108 mmol/L CO2 28 20-32 mmol/L Glucose 93 65-99 mg/dL BUN 14 6-20 mg/dL Creatinine 0.85 0.50-1.00 mg/dL Calcium 9.2 8.6-10.4 mg/dL eGFR by Creatinine 79 >59 mL/min/1.73m2 P-FSH and LH Reviewed date:12/12/2024 12:17:40 PM Interpretation:indicates postmenopause Performing Lab: Notes/Report: Test performed by [employer] [facility] [employer] [address], [address], [place] [address] Uziel Rose MD, Mobile Home Technician CLIA: [id number] Luteinizing Hormone 42.60 LH Reference Range Men: 1.7 - 8.6 Women: Follicular phase 2.4 - 12.6 Ovulation phase 14.0 - 95.6 Luteal phase 1.0 - 11.4 Postmenopause 7.7 - 58.5 FSH 66.30 FSH Reference Range Men: 1.5 - 12.4 Women: Follicular phase 3.5 - 12.5 Ovulation phase 4.7 - 21.5 Luteal phase 1.7 - 7.7 Postmenopause 25.8 - 134.8 P-Lipid Panel Reviewed date:12/12/2024 12:17:40 PM Interpretation:Normal Performing Lab: Notes/Report: Test performed by [employer], [address] , [address], [place] [address] Uziel Rose MD, Mobile Home Technician CLIA: [id number] Cholesterol 118 <200 mg/dL Triglycerides 77 <150 mg/dL HDL Cholesterol 48 >39 mg/dL Cholesterol / HDL Ratio 2.46 0.00-4.44 Ratio Non-HDL Cholesterol 70 <130 mg/dL LDL Cholesterol (Calculation) 55 <130 mg/dL LDL Cholesterol Levels* Less than 100 mg/dL Optimal 100 to 129 mg/dL Near Optimal/ Above Optimal 130 to 159 mg/dL Borderline High 160 to 189 mg/dL High 190 mg/dL and above Very High * Categories as recommended by the 2004 ATPIII guidelines LDL/HDL Ratio 1.1 <3.3 Ratio LDL Cholesterol Patient History Test Date: 11/23/2023 LDL Results: 140 Units: mg/dL % Change: - Test Date: 01/17/2024 LDL Results: 68 Units: mg/dL % Change: -51% Test Date: 12/05/2024 LDL Results: 55 Units: mg/dL % Change: -19% P-TSH Reviewed date:12/12/2024 12:17:40 PM Interpretation:Normal Performing Lab: Notes/Report: Test performed by [employer] [address] , [address], [place] [address] Uziel Rose MD, Mobile Home Technician CLIA: [id number] TSH 4.05 0.43-5.25 mU/L REASON FOR VISIT blood work Medications Medication SIG (Take, Route, Frequency, Duration) Notes Start Date End Date Status Pregabalin 75 MG 1 capsule Orally 3 times a day; Duration: 30 days 11/03/2024 Active Celecoxib 200 MG 1 cap(s) orally once daily 08/19/2018 Active Triamterene-HCTZ 37.5-25 MG TAKE 1 TABLET BY MOUTH EVERY DAY IN THE MORNING; Duration: 90 Active Atorvastatin Calcium 80 MG TAKE 1 TABLET BY MOUTH DAILY AT BEDTIME; Duration: 90 Active DULoxetine HCl 30 MG 1 capsule Orally On ce a day; Duration: 30 day(s) Not-Taking Levothyroxine Sodium 25 MCG TAKE 1 TABLET BY MOUTH DAILY; Duration: 90 Active Flonase Allergy Relief 50 MCG/ACT 1 spray in each nostril Nasally Once a day; Duration: 30 day(s) 03/15/2023 Active Metoprolol Succinate ER 25 MG TAKE 1 TABLET BY MOUTH DAILY; Duration: 90 Active Oxazepam 10 MG 1 capsule as needed Orally three times a day as needed; Duration: 30 days 08/18/2024 Active buPROPion HCl ER (SR) 150 MG 1 Orally Two times a day; Duration: 30 days Active Cetirizine HCl 10 MG 1 tablet Orally Onc e a day; Duration: 30 day(s) 03/15/2023 Active Problems Problem Type SNOMED Code ICD Code Onset Dates Problem Status W/U Status Risk Notes Problem Chronic fatigue (R53.82) Active confirmed Encounters Encounter Location Date Provider Diagnosis [facility] [address] [facility] [address] [place] [id number] 12/05/2024 Christopher Lechuga Hyperkalemia E87.5 a nd Chronic fatigue R53.82 Assessments Encounter Date Diagnosis (ICD Code) Assessment Notes Treatment Notes Treatment Clinical Notes Section Notes 12/05/2024 Hyperkalemia (ICD-10 - E87.5) 12/05/2024 Chronic fatigue (ICD-10 - R53.82) Plan Of Treatment No Information Progress Notes * AN LOVELACEDOB:1965 (59 yo F)Acc No.[id number]:12/05/2024 Patient: AN LOPEZ Provider: Christopher Lechuga M.D. :1965 A ge:59 Y S ex:Female Date:12/05/2024 Address:[facility] [id number] Subjective: * Chief Complaints: * 1 . Blood work. * Medical History: * Medications: T aking Cetirizine HCl 10 MG Tablet 1 tablet Orally Once a day , Taking Flonase Allergy Relief 50 MCG/ACT Suspension 1 spray in each nostril Nasally Once a day , Taking Levothyroxine Sodium 25 MCG Tablet TAKE 1 TABLET BY MOUTH DAILY , Taking Oxazepam 10 MG Capsule 1 capsule as needed Orally three times a day as needed , Taking Metoprolol Succinate ER 25 MG Tablet Extended Release 24 Hour TAKE 1 TABLET BY MOUTH DAILY , Taking buPROPion HCl ER (SR) 150 MG Tablet Extended Release 12 Hour 1 Orally Two times a day , Taking Pregabalin 75 MG Capsule 1 capsule Orally 3 times a day , Taking Celecoxib 200 MG Capsule 1 cap(s) orally once daily , Taking Atorvastatin Calcium 80 MG Tablet TAKE 1 TABLET BY MOUTH DAILY AT BEDTIME , Taking Triamterene-HCTZ 37.5-25 MG Tablet TAKE 1 TABLET BY MOUTH EVERY DAY IN THE MORNING , Not-Taking DULoxetine HCl 30 MG Capsule Delayed Release Particles 1 capsule Orally Once a day , Medication List reviewed and reconciled with the patient Objective: * Vitals: Assessment: * Assessment: 1. H yperkalemia - E87.5 (Primary) 2 . C hronic fatigue - R53.82 Plan: * Treatment: Value Reference Range B UN 14 6-20 - mg/dL * C alcium 9.2 8.6-10.4 - mg/dL * C hloride 100 97-108 - mmol/L * C O2 28 20-32 - mmol/L * C reatinine 0.85 0.50-1.00 - mg/dL * G lucose 93 65-99 - mg/dL * P otassium 4.5 3.5-5.3 - mmol/L * S odium 136 135-145 - mmol/L * e GFR by Creatinine 79 >59 - mL/min/1.73m2 * Zina Washington 12/09/2024 03 :08:56 PM EDT > Patient informed of normal results. 2.?Chronic fatigue?LAB: P-FSH and LH (Collection Date & Time - 12/05/2024 09:47 AM)?indicates postmenopause* Value Reference Range F SH 66.30 - mIU/mL * L uteinizing Hormone 42.60 - mIU/mL * Zina Washington 12/09/2024 03 :08:56 PM EDT > Patient informed of normal results. ?LAB: P-TSH (Collection Date & Time - 12/05/2024 09:47 AM)?Normal* Value Reference Range T SH 4.05 0.43-5.25 - mU/L * Zina Washington 12/09/2024 03 :08:56 PM EDT > Patient informed of normal results. * Labs: * L ab: P-Lipid Panel (Collection Date & Time - 12/05/2024 09:47 AM) N ormal Value Reference Range C holesterol / HDL Ratio 2.46 0.00-4.44 - Ratio * C holesterol 118 <200 - mg/dL * H DL Cholesterol 48 >39 - mg/dL * L DL Cholesterol (Calculation) 55 <130 - mg/d L * L DL/HDL Ratio 1.1 <3.3 - Ratio * N on-HDL Cholesterol 70 <130 - mg/dL * T riglycerides 77 <150 - mg/dL * [facility], IT support 12/09/2024 04:00:07 : This order was created by the Interface. * Images: Billing Information: * Visit Code: * Procedure Codes: * Electronic signature of Christopher Lechuga MD on 01/15/2025 at 08:30 AM EDT Sign off status: Pending * Provider: Christopher Lechuga M.D. Date: 0 12/05/2024 Generated for Brittney ramirez/Brendon/Myleneitting on: 0 01/15/2025 08:30 AM EDT
--- OUTSIDE RECORDS SUMMARY | 2024-12-16 05:50 | XMS_ITS ---
[facility] [address] [facility] [address] [place] [id number] Care Team Providers Care Vulnerability Researcher Name Role Phone Christopher Lechuga Primary Care Provider [phone] BeverlyJaime [phone] Results Component Value Reference Range Notes Mammogram Reviewed date:12/29/2024 04:27:47 PM Interpretation:Negative Performing Lab: Notes/Report: Negative result Negative REASON FOR VISIT due isa, col Encounters Encounter Location Date Provider Diagnosis [facility] [address] [facility] [address] [place] [id number] 12/16/2024 Christopher Lechuga Screening for breast cancer Z12.39 Assessments Encounter Date Diagnosis (ICD Code) Assessment Notes Treatment Notes Treatment Clinical Notes Section Notes 12/16/2024 Screening for breast cancer (ICD-10 - Z12.39) Plan Of Treatment No Information Progress Notes * AN LOVELACEDOB:1965 (59 yo F)Acc No.[id number]:12/16/2024 Patient: AN LOPEZ :1965 A ge:59 Y S ex:Female Address:[place] [address] Subjective: * Chief Complaints: * D ue isa, col * Medical History: * Surgical History: * Hospitalization/Major Diagno stic Procedure: * Medications: Objective: * Vitals: * Physical Examination: Assessment: * Assessment: 1. S creening for breast cancer - Z12.39 (Primary) Plan: * Treatment: * Procedure Codes: * true * Date: Generated for Printi ng/Faxing/eTransmitting on: 0 01/15/2025 08:31 AM EDT
--- OUTSIDE RECORDS SUMMARY | 2025-01-13 07:30 | XMS_ITS ---
Author Organization [facility] Address [address] [facility] [address] [place], [place] [id number] Care Team Providers Care Candy Starch Mold Printer Name Role Phone Christopher Lechuga Primary Care Provider Jaime Paul Unavailable [phone] MccormickHemant peña Unavailable [phone] Allergies No Known Allergies Results Component Value Reference Range Notes CBC Venipuncture (in house) Reviewed date:01/13/2025 04:08:45 PM Interpretation: Performing Lab: Notes/Report: wbc 8.0 3.5 - 10 lymph 21.6% 15 - 50 mid 5.7% 2 - 15 gran 72.7% 35 - 80 rbc 5.16 3.5 - 5.5 hgb 15.2 11.5 - 16.5 hct 45.7 35 - 55 mcv 88.5 75 - 100 mch 29.4 25 - 35 mchc 33.3 31 - 38 platlet 213 100 - 400 P-Amylase Reviewed date:01/14/2025 08:43:21 AM Interpretation:Normal Performing Lab: Notes/Report: Test performed by [facility] [address] [place], [place] [email or web address] [place] , [address], [place] [address] Uziel Rose MD, Surgical Garment Assembly Supervisor CLIA: [id number] Amylase 57 28-100 U/L P-Comprehensive Metabolic Pa apple (CMP) Reviewed date:01/14/2025 08:43:21 AM Interpretation:gluc 103, Cr 1.21, gfr 51, alk phos 145 Performing Lab: Notes/Report: Test performed by [facility] [address] [place], [place] [email or web address] [place] , [address], [place] [address] Uziel Rose MD, Surgical Garment Assembly Supervisor CLIA: [id number] Sodium 142 135-145 mmol/L Potassium 5.2 3.5-5.3 mmol/L Chloride 104 97-108 mmol/L CO2 26 20-32 mmol/L Glucose 103 65-99 mg/dL BUN 20 6-20 mg/dL Creatinine 1.21 0.50-1.00 mg/dL Calcium 9.9 8.6-10.4 mg/dL eGFR by Creatinine 51 >59 mL/min/1.73m2 Protein 6.7 6.0-8.3 g/dL Albumin 4.6 3.5-5.3 g/dL Alkaline Phosphatase 145 35-121 IU/L ALT (SGPT) 12 <5-47 IU/L AST (SGOT) 12 <5-40 IU/L Bilirubin, Total 0.5 <0.2-1.2 mg/dL A/G Ratio 2.2 1.1-2.5 P-Lipase Reviewed date:01/14/2025 08:43:21 AM Interpretation:Normal Performing Lab: Notes/Report: Test performed by [facility], [address] , [address], [place] [address] Uziel Rose MD, Surgical Garment Assembly Supervisor CLIA: [id number] Lipase 34.4 13.0-60.0 U/L REASON FOR VISIT 2 months not feeling well Medications Medication SIG (Take, Route, Frequency, Duration) Notes Start Date End Date Status Cetirizine HCl 10 MG 1 tablet Orally Onc e a day; Duration: 30 day(s) 03/15/2023 Active Flonase Allergy Relief 50 MCG/ACT 1 spray in each nostril Nasally Once a day; Duration: 30 day(s) 03/15/2023 Active Oxazepam 10 MG 1 capsule as needed Orally three times a day as needed; Duration: 30 days 08/18/2024 Active buPROPion HCl ER (SR) 150 MG 1 Orally Tw o times a day; Duration: 30 days Active Pregabalin 75 MG 1 capsule Orally 3 t imes a day; Duration: 30 days 11/03/2024 Active Atorvastatin Calcium 80 MG TAKE 1 TABLET BY MOUTH DAILY AT BEDTIME; Duration: 90 Active Triamterene-HCTZ 37.5-25 MG TAKE 1 TABLE T BY MOUTH EVERY DAY IN THE MORNING; Duration: 90 Active Levothyroxine Sodium 25 MCG TAKE 1 TABLE T BY MOUTH DAILY; Duration: 90 Active Metoprolol Succinate ER 25 MG 1 tablet Orally Once a day; Duration: 90 days Active Celecoxib 200 MG 1 cap(s) orally once daily 08/19/2018 Active Ondansetron HCl 4 MG 1 tablet Orally every 8 hours As needed 01/13/2025 Active Vital Signs Weight 182 lbs 01/13/2025 Blood pressure systolic 122 mm Hg 01/14/20 25 Blood pressure diastolic 80 mm Hg 025 Heart Rate 91 /min 01/13/2025 Height 65 in 01/13/2025 BMI 30.28 kg/m2 01/13/2025 Encounters Encounter Location Date Provider Diagnosis [facility] [address] [facility] [address] [place] [id number] 01/13/2025 Hemant Velez Nausea R11.0 and RUQ abdominal pain R10.11 Assessments Encounter Date Diagnosis (ICD Code) Assessment Notes Treatment Notes Treatment Clinical Notes Section Notes 01/13/2025 Nausea (ICD-10 - R11.0) 01/13/2025 RUQ abdominal pain (ICD-10 - R10.11) Plan Of Treatment Medication Medication Name Sig Start Date Stop Date Notes Ondansetron HCl 4 MG 1 tablet Orally every 8 hours 025 Pending Test Test Name Order Date Ultrasound : Abdomen limited 01/13/2025 Next Appt Details Follow Up: via phone to repo rt test results, Reason: Progress Notes * AN LOVELACEDOB:1965 (59 yo F)Acc No.[id number]:01/13/2025 Progress Notes Patient: AN LOPEZ Provider: Paty Velez M.D. :1965 A ge:59 Y S ex:Female Date:01/13/2025 Address:[place], [id number] Pcp:Christopher Lecuhga Subjective: * Chief Complaints: * 1 . 2 months not feeling well. * HPI: G astroenterology: 59 year old female presents with c/o Nausea P t complains of constant nausea for about 2 weeks. Pt states she compares to morning sickeness. Pt has not had any vomiting and states that even certain smells get to her. Pt has also had decreased appetite. Pt states today is the best she has felt in 2 weeks. * ROS: D ERMATOLOGY: no R etienne. n o H chelsey. G ASTROENTEROLOGY: no N ausea. n o V omiting. U ROLOGY: no D ifficulty urinating. n [...] Disease, Fibrocystic Breast Disease, Depression, Anxiety, Allergic rhinitis, Colon polyps. * Surgical History: H ysterectomy , RT Breast Biopsy-benign , Lithotripsy , Sinus 07/15/2007, Disc Surgery, Dr. 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 * Hospitalization/Major Diagno stic Procedure: W steve Bowman [facility] 07/2019. * Family History: F ather: , stroke. M other: alive, rheumatoid arthritis. 6 brother(s) , 4 sister(s) . 3 son(s) , 1 daughter(s) . . * Social History: C URRENT TOBACCO USE: No S moking Status: Patient does NOT smoke. [...] nostril Nasally Once a day , Taking Oxazepam 10 MG Capsule 1 capsule as needed Orally three times a day as needed , Taking buPROPion HCl ER (SR) 150 [...] MOUTH EVERY DAY IN THE MORNING , Taking Levothyroxine Sodium 25 MCG Tablet TAKE 1 TABLET BY MOUTH DAILY , Taking Metoprolol Succinate ER 25 MG Tablet Extended Release 24 Hour 1 tablet Orally Once a day , Discontinued DULoxetine HCl 30 MG Capsule Delayed Release Particles 1 capsule Orally Once a day , Medication List reviewed and reconciled with the patient * Allergies: N .K.D.A. Objective: * Vitals: W t: 182, Temp: 98.0, BP: 122/80, HR: 91, Nurse: ike, Ht: 65, BMI:30.28. * Examination: G astroenterology: General Appearance: p leasant, NAD. O ral cavity: n ormal. S clera: a nicteric. H eart sounds: r egular, normal S1 S2. L ungs: c lear, no rales or wheezes. A bdomen: B S present, soft, some RUQ t enderness to palpation, no guarding or rigidity, no masses felt. Assessment: * Assessment: 1. N ausea - R11.0 (Primary) 2 . R UQ abdominal pain - R10.11 ? Plan: * Treatment: Value Reference Range A que 57 28-100 - U/L * Urmila Liu 01/14/2025 08:4 3:12 AM EDT > See phone encounter ?LAB: P-Comprehensive Metabolic Panel (CMP) (Collection Date & Time - 01/13/2025 11:07 AM)?gluc 103, Cr 1.21, gfr 51, alk phos 145* Value Reference Range A /G Ratio 2.2 1.1-2.5 - * A lbumin 4.6 3.5-5.3 - g/dL * A lkaline Phosphatase 145 H 35-121 - IU/L * A LT (SGPT) 12 <5-47 - IU/L * A ST (SGOT) 12 <5-40 - IU/L * B ilirubin, Total 0.5 <0.2-1.2 - mg/dL * B UN 20 6-20 - mg/dL * C alcium 9.9 8.6-10.4 - mg/dL * C hloride 104 97-108 - mmol/L * C O2 26 20-32 - mmol/L * C reatinine 1.21 H 0.50-1.00 - mg/dL * G lucose 103 H 65-99 - mg/dL * P otassium 5.2 3.5-5.3 - mmol/L * S odium 142 135-145 - mmol/L * P rotein 6.7 6.0-8.3 - g/dL * e GFR by Creatinine 51 L >59 - mL/min/1.73m2 * Urmila Liu 01/14/2025 08:4 3:12 AM EDT > See phone encounter ?LAB: P-Lipase (Collection Date & Time - 01/13/2025 11:07 AM)?Normal* Value Reference Range L ipase 34.4 13.0-60.0 - U/L * Urmila Liu 01/14/2025 08:4 3:12 AM EDT > See phone encounter ?LAB: CBC Venipuncture (in house) (Collection Date & Time - 01/13/2025)* Value Reference Range w bc 8.0 3.5 - 10 * l ymph 21.6% 15 - 50 * m id 5.7% 2 - 15 * g ran 72.7% 35 - 80 * r bc 5.16 3.5 - 5.5 * h gb 15.2 11.5 - 16.5 * h ct 45.7 35 - 55 * m cv 88.5 75 - 100 * m ch 29.4 25 - 35 * m chc 33.3 31 - 38 * p latlet 213 100 - 400 * Claudine Salcedo 01/13/2025 12:17: 15 PM EDT > ?Imaging: Ultrasound : Abdomen limited* Floresita Caputo 01/13/2025 12:1 4:55 PM EDT > no auth required; CPT code 69249; faxed to [facility] Scheduling 2.?RUQ abdominal pain?LAB: P-Comprehensive Metabolic Panel (CMP) (Collection Date & Time - 01/13/2025 11:07 AM)?gluc 103, Cr 1.21, gfr 51, alk phos 145* Value Reference Range A /G Ratio 2.2 1.1-2.5 - * A lbumin 4.6 3.5-5.3 - g/dL * A lkaline Phosphatase 145 H 35-121 - IU/L * A LT (SGPT) 12 <5-47 - IU/L * A ST (SGOT) 12 <5-40 - IU/L * B ilirubin, Total 0.5 <0.2-1.2 - mg/dL * B UN 20 6-20 - mg/dL * C alcium 9.9 8.6-10.4 - mg/dL * C hloride 104 97-108 - mmol/L * C O2 26 20-32 - mmol/L * C reatinine 1.21 H 0.50-1.00 - mg/dL * G lucose 103 H 65-99 - mg/dL * P otassium 5.2 3.5-5.3 - mmol/L * S odium 142 135-145 - mmol/L * P rotein 6.7 6.0-8.3 - g/dL * e GFR by Creatinine 51 L >59 - mL/min/1.73m2 * Urmila Liu 01/14/2025 08:4 3:12 AM EDT > See phone encounter ?LAB: CBC Venipuncture (in house) (Collection Date & Time - 01/13/2025)* Value Reference Range w bc 8.0 3.5 - 10 * l ymph 21.6% 15 - 50 * m id 5.7% 2 - 15 * g ran 72.7% 35 - 80 * r bc 5.16 3.5 - 5.5 * h gb 15.2 11.5 - 16.5 * h ct 45.7 35 - 55 * m cv 88.5 75 - 100 * m ch 29.4 25 - 35 * m chc 33.3 31 - 38 * p latlet 213 100 - 400 * Claudine Salcedo 01/13/2025 12:17: 15 PM EDT > ?Imaging: Ultrasound : Abdomen limited* Floresita Caputo 01/13/2025 12:1 4:55 PM EDT > no auth required; CPT code 13163; faxed to [facility] Scheduling * Procedure Codes: 8 5025 CBC WITH AUTO DIFF * Follow Up: v ia phone to report test results * Images: Billing Information: * Visit Code: 10766 Office Visit, Est Pt., Level 4. * Procedure Codes: 38694 CBC WITH AUTO DIFF. * Electronic signature of Richelle Velez MD on 01/15/2025 at 08:30 AM EDT Sign off status: Pending * Provider: Paty Velez M.D. Date: 01/13/2025 Generated for Brittney ramirez/Brendon/Arturo on: 01/15/2025 08:30 AM EDT History and Physical Notes * HPI (History of Present Illness) Category Sub-Category Detail Notes Category Not es Gastroenterology Nausea Pt complains of constant nausea for about 2 weeks. Pt states she compares to morning sickeness. Pt has not had any vomiting and states that even certain smells get to her. Pt has also had decreased appetite. Pt states today is the best she has felt in 2 weeks Examination Category Sub-Category Detail Notes Category Not es Gastroenterology Oral cavity: normal Sclera: anicteric Heart sounds: regular, normal S1 S 2 Lungs: clear, no rales or w heezes Abdomen: BS present, soft, so me RUQ tenderness to palpation, no guarding or rigidity, no masses felt General Appearance: pleasant, NAD
--- NOTE | 2025-01-15 08:21 | US_ITS ---
FINAL REPORT TECHNIQUE: Sonographic images of the right upper quadrant were obtained. CLINICAL HISTORY: RUQ PAIN COMPARISON: None FINDINGS: PANCREAS: The pancreas is not well-visualized secondary to overlying bowel gas. LIVER: Homogeneous. No focal hepatic lesion. No intrahepatic biliary ductal dilatation. GALLBLADDER: No gallstones. No gallbladder wall thickening or pericholecystic fluid. COMMON DUCT: 4 mm. Normal for age. RIGHT KIDNEY: The right kidney measures 9.6 cm. There is no hydronephrosis, mass, or stone. FREE FLUID: None. IMPRESSION: Unremarkable ultrasound of the right upper quadrant. Reviewed, Interpreted and Dictated by Marianna Deutsch MD Transcribed by Christina Butler Authenticated and [facility]
--- OUTSIDE RECORDS SUMMARY | 2025-01-15 08:30 | XMS_ITS | Referral Summary ---
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 Gender Identity Not on file Sexual Orientation [...] on file Medical Devices Implanted Type Area Job Specification Writer Device Identifier Shelf Expiration Date Model / Serial / Lot Bone Matrx Vivigen Prefilled -1900-001 - [id number] Implanted:Qty: 1 on 08/21/2024 by Lenny Sexton MD at [facility] IMPLANTS N/A: Spine Lumbar LIFENET:LIFENET TRANSPLANT SRV 06/18/2025 [facility]1900-001 / [id number] / Fibergraft Mtrx 6.25cc [id number] - [id number] Implanted:Qty: 1 on 08/21/2024 by Lenny Sexton MD at [facility] N/A: Spine Lumbar J &J:DEPUY:DEPUY SPINE 01/15/2027 [id number] / / [id number] Sealant Durasl Spine 5ml [id number] - [id number] Implanted:Qty: 1 on 08/21/2024 by Lenny Sexton MD at [facility] N/A: Spine Lumbar MEDTRONIC MIN INV THERAPY GRP 03/20/2025104202 / / [id number] Cage T/Plif 13mm Eit 8d 13/02 [id number] - [id number] Implanted:Qty: 1 on 08/21/2024 by Lenny Sexton MD at [facility] N/A: Spine Lumbar J &J:DEPUY:DEPUY SPINE 03/20/2034 [id number] / / [id number] Cage Eit Plif H 11mm 8d 13/02 [id number] - [id number] Implanted:Qty: 1 on 08/21/2024 by Lenny Sexton MD at [facility] N/A: Spine Lumbar J &J:DEPUY:DEPUY SPINE 09/17/2028 [id number] / / [id number] Scr Spne Don Fix 7x50mm - [id number] Implanted:Qty: 5 on 08/21/2024 by Lenny Sexton MD at [facility] N/A: Spine Lumbar J &J:DEPUY:DEPUY SPINE / / Scr Spne Don Fix 7x45mm - [id number] Implanted:Qty: 1 on 08/21/2024 by Lenny Sexton MD at [facility] N/A: Spine Lumbar J &J:DEPUY:DEPUY SPINE 5 / / Mis Alesha Ply Scrw Set Ti - [id number] Implanted:Qty: 6 on 08/21/2024 by Lenny Sexton MD at [facility] N/A: Spine Lumbar J &J:DEPUY:DEPUY SPINE / / Alberto Pre Load 75mm - [id number] Implanted:Qty: 2 on 08/21/2024 by Lenny Sexton MD at [facility] N/A: Spine Lumbar J &J:DEPUY:DEPUY SPINE / / Insurance BLUE CROSS/BLUE SHIELD Advance Directives For more information, please contact: [phone] * Full Code (Latest Code Status on File) Date Activated Date Inactivated Comments 08/21/2024 10:55 AM 08/26/2024 4:28 PM Care Teams Home Energy Inspector Relationship Specialty Start Date End Date Ritesh Lechuga MD [address] [address] PCP - General Neurology 08/14/24
--- OUTSIDE RECORDS SUMMARY | 2025-01-15 08:30 | XMS_ITS | Clinical Summary ---
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 Gender Identity Not on file Sexual Orientation [...] 07/03/2028 07/03/2018 Medical Devices Implanted Type Area Food And Nutrition Professor Device Identifier Shelf Expiration Date Model / Serial / Lot Bone Matrx Vivigen Prefilled Bl-1900-001 - [id number] Implanted:Qty: 1 on 08/21/2024 by Lenny Sexton MD at [facility] IMPLANTS N/A: Spine Lumbar LIFENET:LIFENET TRANSPLANT SRV 06/18/2025 BL-1900-001 / [id number] / Fibergraft Mtrx 6.25cc [id number] - [id number] Implanted:Qty: 1 on 08/21/2024 by Lenny Sexton MD at [facility] N/A: Spine Lumbar J &J:DEPUY:DEPUY SPINE 01/15/2027 [id number] / / [id number] Sealant Durasl Spine 5ml [id number] - [id number] Implanted:Qty: 1 on 08/21/2024 by Lenny Sexton MD at [facility] N/A: Spine Lumbar MEDTRONIC MIN INV THERAPY GRP 03/20/2025293001 / / [id number] Cage T/Plif 13mm Eit 8d 13/02 [id number] - [id number] Implanted:Qty: 1 on 08/21/2024 by Lenny Sexton MD at [facility] N/A: Spine Lumbar J &J:DEPUY:DEPUY SPINE 03/20/2034 [id number] / / [id number] Cage Eit Plif H 11mm 8d 13/02 [id number] - [id number] Implanted:Qty: 1 on 08/21/2024 by Lenny Sexton MD at [facility] N/A: Spine Lumbar J &J:DEPUY:DEPUY SPINE 09/17/2028 [id number] / / [id number] Scr Spne Don Fix 7x50mm - Implanted:Qty: 5 on 08/21/2024 by Lenny Sexton MD at [facility] N/A: Spine Lumbar J &J:DEPUY:DEPUY SPINE / / Scr Spne Don Fix 7x45mm - [id number] Implanted:Qty: 1 on 08/21/2024 by Lenny Sexton MD at [facility] N/A: Spine Lumbar J &J:DEPUY:DEPUY SPINE / / Mis Alesha Ply Scrw Set Ti - [id number] Implanted:Qty: 6 on 08/21/2024 by Lenny Sexton MD at [facility] N/A: Spine Lumbar J &J:DEPUY:DEPUY SPINE / / Alberto Pre Load 75mm [id number] - [id number] Implanted:Qty: 2 on 08/21/2024 by Lenny Sexton MD at [facility] N/A: Spine Lumbar J &J:DEPUY:DEPUY SPINE / / Insurance BLUE CROSS/BLUE SHIELD Advance Directives For more information, please contact: [phone] * Full Code (Latest Code Status on File) Date Activated Date Inactivated Comments 08/21/2024 10:55 AM 08/26/2024 4:28 PM Care Teams Case Finishing Machine Adjuster Relationship Specialty Start Date End Date Ritesh Lechuga MD [address] [facility] [address] [place] [address] PCP - General Neurology 08/14/24
--- OUTSIDE RECORDS SUMMARY | 2025-01-15 08:31 | XMS_ITS | Clinical Summary ---
Author Organization [facility] Address [address] [place] [address] Care Team Providers Care Certified Corporate Travel Executive Name Role Phone Isaac Lechuga MD Primary Care Provider [phone] Allergies No known active allergies Medications metoprolol [...] negative. No psoriasis. 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 RHEUM[facility]OLOGY [address] [place] [phone] David Banuelos MD 11/07/2024 9:30 AM EDT Office Visit [facility] RHE[facility] [address] [address] David Banuelos MD Generalized osteoarthrosis, involving multiple [...] Description 05/11/2025 1:30 PM EST Office Visit [facility] RHE[facility] [address] [address] Shelly Hurst APRN 330 [facility] [address] [place] [address] Scheduled Procedures Name Priority Associated [...] 07/03/2028 019 Medical Devices Implanted Type Area Machine Sneller Device Identifier Shelf Expiration Date Model / Serial / Lot Cage Bengal/Std 7d 4mm - [id number] Implanted:Qty: 3 on 04/24/2017 by Jason Baires MD at [facility] DEPUY SPINE [id number] / / Plt Gentry 3lvl 6hl 45mm - [id number] Implanted:Qty: 1 on 04/24/2017 by Jason Baires MD at [facility] DEPUY SPINE [id number] / / Scrw Gentry Alexis Sd 14mm - [id number] Implanted:Qty: 1 on 04/24/2017 by Jason Baires MD at [facility] DEPUY SPINE [id number] / / Scrw Gentry Alexis Sd 15mm - [id number] Implanted:Qty: 7 on 04/24/2017 by Jason Baires MD at [facility] DEPUY SPINE [id number] / / Procedures Procedure Name Priority Date/Time [...] 11/07/2024 8:07 PM EDT Performed at: [address] [id number] House Designer: Lenny Gomez MD, Phone: [phone] Patient Fasting: N us David Banuelos MD LAB BLOOD ORDERABLES Final Result [facility] ([facility]) [address] [place] [address], [facility] [address] [place] [address], * CBC & Differential (11/07/2024 10:19 AM [...] - 11/07/2024 8:07 PM EDT Performed at: [address] [place] [address] [address] [place], [place] [id number] House Designer: Lenny Gomez MD, Phone: [phone] Patient Fasting: N us David Banuelos MD LAB BLOOD ORDERABLES Final Result Performing Organization Address [facility] Co de Phone Number [facility] ([facility]) [address] [place] [address], [facility] [address] [place] [address], * C-reactive Protein (11/07/2024 10:19 AM EDT) [facility] C-Reactive Protein <0.30 0.00 - 0.50 mg/dL [facility] Blood 11/07/2024 10:1 9 AM EDT 11/07/2024 Narrative [facility] ([facility]) - 11/07/2024 8:07 PM EDT Performed at: [address] [place] [id number] House Designer: Lenny Gomez MD, Phone: [phone] Patient Fasting: N us David Banuelos MD LAB BLOOD ORDERABLES Final Result Performing Organization Address [facility] Co de Phone Number [facility] ([facility]) [address] [place] [address], [facility] [address] [place] [address], * (ABNORMAL) Comprehensive Metabolic Panel (11/07/2024 10:19 AM EDT) Pathologist [facility] Glucose 96 65 - 99 mg/dL [...] - 11/07/2024 8:07 PM EDT Performed at: [address] [place] [id number] House Designer: Lenny Gomez MD, Phone: [phone] Patient Fasting: N David Banuelos MD LAB BLOOD ORDERABLES Final Result [facility] [address] [place] [address], [facility] [address] [place] [address], [place] [phone] from Last 3 Months Insurance Advance Directives * Full Code (Latest Code Status on File) Date Activated Date Inactivated Comments 04/24/2017 12:19 PM 04/25/2017 6:16 PM Care Teams Certified Corporate Travel Executive Relationship Specialty Start Date End Date Isaac Lechuga MD [address] [facility] [address] [place] [address] PCP - General Family Medicine 11/10/16
--- OUTSIDE RECORDS SUMMARY | 2025-01-15 08:31 | XMS_ITS | Encounter Summary ---
Author Organization [facility] Address [address] [place] [address] Care Team Providers Care Asphalt Tamper Name Role Phone Isaac Lechuga MD Primary Care Provider [phone] Encounter Details Date Type Department Care Team (Late Contact Info) Description 11/10/2024 Results Follow-Up [facility] RHEUMATOLOGY [address] [place] [phone] David Banuelos MD [address] [place] [address] [phone] Social History Tobacco Use Types Packs/Day Years [...] Description 05/11/2025 1:30 PM EST Office Visit [facility] RHEUMATOLOGY [address] [place] [phone] Shelly Hurst APRN [address] [phone] Scheduled Procedures Name Priority Associated Diagnoses Date/Ti me CV MYELOGRAM LUMBAR SPINE HNP (herniated nucleus pulposus), lumbar 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
--- OUTSIDE RECORDS SUMMARY | 2025-01-15 08:32 | XMS_ITS | Patient Health Record ---
Author Organization [facility] Address [address] [facility] [id number] Care Team Providers Care Environmental Studies Professor Name Role Phone Christopher Lechuga Primary Care Provider Jaime Paul Unavailable [phone] Hemant Velez Unavailable [phone] Allergies No Known Allergies Results Component Value Reference Range Notes P-Basic Metabolic Panel (BMP ) Reviewed date:12/12/2024 12:17:40 PM Interpretation:Normal Performing Lab: Notes/Report: Test performed by [facility] [place] [facility] [address] , [address], [place] [address] Uziel Rose MD, Water Mechanic CLIA: [id number] Sodium 136 135-145 mmol/L Potassium 4.5 3.5-5.3 mmol/L Chloride 100 97-108 mmol/L CO2 28 20-32 mmol/L Glucose 93 65-99 mg/dL BUN 14 6-20 mg/dL Creatinine 0.85 0.50-1.00 mg/dL Calcium 9.2 8.6-10.4 mg/dL eGFR by Creatinine 79 >59 mL/min/1.73m2 P-FSH and LH Reviewed date:12/12/2024 12:17:40 PM Interpretation:indicates postmenopause Performing Lab: Notes/Report: Test performed by [facility] [address] [place], [place] [address] , [address], [place] [address] Uziel Rose MD, Water Mechanic CLIA: [id number] Luteinizing Hormone 42.60 LH Reference Range Men: [...] Interpretation:Normal Performing Lab: Notes/Report: Test performed by [facility] [address] , [address], [place] [address] Uziel Rose MD, Water Mechanic CLIA: [id number] Cholesterol 118 <200 mg/dL Triglycerides 77 <150 [...] Interpretation:Normal Performing Lab: Notes/Report: Test performed by [facility] [address] [place] [address] , [place] [address] Uziel Rose MD, Water Mechanic CLIA: [id number] TSH 4.05 0.43-5.25 mU/L CBC Venipuncture (in house) Reviewed date:01/13/2025 04:08:45 [...] Interpretation:Normal Performing Lab: Notes/Report: Test performed by [facility] [address] [place], [place] [address] [address] , [address], [place] [address] Uziel Rose MD, Water Mechanic CLIA: [id number] Amylase 57 28-100 U/L P-Comprehensive Metabolic Pa apple (CMP) Reviewed date:01/14/2025 08:43:21 AM Interpretation:gluc 103, Cr 1.21, gfr 51, alk phos 145 Performing Lab: Notes/Report: Test performed by [facility] [address] [place] [address] , [address], [place] [address] Uziel Rose MD, Water Mechanic CLIA: [id number] Sodium 142 135-145 mmol/L Potassium 5.2 3.5-5.3 [...] Interpretation:Normal Performing Lab: Notes/Report: Test performed by [facility] [address] [place] [address] [address], [address], [place] [address] Uziel Rose MD, Water Mechanic CLIA: [id number] Lipase 34.4 13.0-60.0 U/L Mammogram Reviewed date:12/29/2024 04:27:47 PM Interpretation:Negative Performing Lab: Notes/Report: Negative result Negative CT Scan : Coronary w/o contr ast (calcium scoring) Reviewed date:01/31/2024 12:43:07 PM Interpretation:Ca Score is 0, normal Performing Lab: Notes/Report: Ca Score is 0, normal P-Microalbumin/Creatinine, R andom Urine Sample Reviewed date:01/18/2024 02:25:21 PM Interpretation: Performing Lab: Notes/Report: Test performed by [facility], [address] , [place] [address] Uziel Rose MD, Water Mechanic CLIA: [id number] Albumin/Creatinine Ratio, Urine 5 0-30 ug/mg Microalbumin, Urine, Random 0.5 Creatinine, Urine 93.1 P-Lipid Panel Reviewed date:01/18/2024 02:25:21 PM Interpretation: Performing Lab: Notes/Report: Test performed by [facility], [address] , [place] [address] Uziel Rose MD, Water Mechanic CLIA: [id number] Cholesterol 140 <200 mg/dL Triglycerides 94 <150 [...] Interpretation: Performing Lab: Notes/Report: Test performed by [facility] [address] [place] [address] , [address], [place] [address] Uziel Rose MD, Water Mechanic CLIA: [id number] Sodium 139 135-145 mmol/L Potassium 5.3 3.5-5.3 [...] 0.6 <0.2-1.2 mg/dL A/G Ratio 2.2 1.1-2.5 P-Basic Metabolic Panel (BMP ) Reviewed date:12/09/2024 11:31:21 AM Interpretation:Na 134, K+ 5.4 Performing Lab: Notes/Report: Test performed by [facility] [address] [place] [address] [address], [place] [address] Uziel Rose MD, Water Mechanic CLIA: [id number] Sodium 134 135-145 mmol/L Potassium 5.4 3.5-5.3 mmol/L Chloride 98 97-108 mmol/L CO2 26 20-32 mmol/L Glucose 88 65-99 mg/dL BUN 12 6-20 mg/dL Creatinine 0.92 0.50-1.00 mg/dL Calcium 9.6 8.6-10.4 mg/dL eGFR by Creatinine 72 >59 mL/min/1.73m2 H-BUN/CREAT Reviewed date:04/23/2024 11:37:39 AM Interpretation: Performing Lab: Notes/Report: BUN 17 7-17 mg/dl CREATT 1.00 0.52-1.04 mg/dl GFRAA 69 >60 ML/MIN EGFR 57 >60 ml/min P-Basic Metabolic Panel (BMP ) Reviewed date:04/07/2024 12:31:28 PM Interpretation:K+ 6, gluc 102, Cr 1.01 Performing Lab: Notes/Report: Test performed by [facility] [address] , [place] [address] Uziel Rose MD, Water Mechanic CLIA: [id number] Sodium 143 135-145 mmol/L Potassium 6.0 3.5-5.3 mmol/L Chloride 107 97-108 mmol/L CO2 26 22-32 mmol/L Glucose 102 65-99 mg/dL BUN 18 6-20 mg/dL Creatinine 1.01 0.50-1.00 mg/dL Calcium 9.6 8.6-10.4 mg/dL eGFR by Creatinine 64 >59 mL/min/1.73m2 MRI : spine, lumbosacral wit h and without contrast Reviewed date:05/06/2024 10:23:23 AM Interpretation:Abnormal, see 05/05/24 f/u OV Performing Lab: Notes/Report: Abnormal, see 05/05/24 f/u OV Medications Medication SIG (Take, Route, Frequency, Duration) Notes Start Date End Date Status Celecoxib 200 MG 1 cap(s) orally once daily 08/19/2018 Active Atorvastatin Calcium 80 MG TAKE 1 TABLET BY MOUTH DAILY AT BEDTIME; Duration: 90 Active Ondansetron HCl 4 MG 1 tablet Orally every 8 hours As needed 01/13/2025 Active Triamterene-HCTZ 37.5-25 MG TAKE 1 TABLE T BY MOUTH EVERY DAY IN THE MORNING; Duration: 90 Active Levothyroxine Sodium 25 MCG TAKE 1 TABLE T BY MOUTH DAILY; Duration: 90 Active Metoprolol Succinate ER 25 MG 1 tablet Orally Once a day; Duration: 90 days Active Cetirizine HCl 10 MG 1 [...] a day; Duration: 30 days 11/03/2024 Active Immunizations Vaccine Route Administration Date Status Comme [...] W/U Status Risk Notes Problem Essential hypertension (53202607) Essential hypertension (I10) Active confirmed Problem Arthropathy (826537610) 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) Active confirmed Problem Mixed anxiety and depressive disorder (611769442) Depression with anxiety (F41.8) Active confirmed Problem BMI 30+ - obesity (330124657) BMI 32.0-32.9,adult (Z68.32) Active confirmed Problem Memory loss (38644942) Memory loss (R41.3) Active confirmed Problem Pure hypercholesterolemia (855947811) Pure hypercholesterolemia (E78.0) Active confirmed Problem Mixed hyperlipidemia (954873974) Mixed hyperlipidemia (E78.2) Active confirmed Problem Localized, primary osteoarthritis of the hand (325431148) Primary osteoarthritis, right hand (M19.041) Active confirmed Problem Localized, primary osteoarthritis of the hand (460544025) Primary osteoarthritis, left hand (M19.042) Active confirmed Problem Degeneration of cervical intervertebral disc (24525220) Degenerative disc disease, cervical (M50.30) Active confirmed Problem Acquired hypothyroidism (594085622) Acquired hypothyroidism (E03.9) Active confirmed Problem Reactive depression (situational) (34425891) Situational depression (F43.21) Active confirmed Problem Spinal stenosis of lumbosacral region (500748108) Spinal stenosis of lumbosacral region (M48.07) Active confirmed Problem Chronic fatigue syndrome (05096081) Chronic fatigue (R53.82) Active confirmed Problem Insomnia disorder related to another mental disorder (72929839) Psychophysiological insomnia (F51.04) Active confirmed Problem Body mass index 30.0 0 to 34.99 (139737601781232) BMI 31.0-31.9,adult (Z68.31) Active confirmed Problem Displacement of lumbar intervertebral disc without myelopathy (97447496) Protrusion of intervertebral disc of lumbosacral region (M51.27) Active confirmed Problem Disorder of lumbosacral intervertebral disc (869878886) Lumbosacral disc disease (M51.9) Active confirmed Problem Allergic rhinitis (81551583) Allergic rhinitis, unspecified allergic rhinitis trigger, unspecified rhinitis seasonality (J30.9) Active confirmed Problem Lipoma of left lower limb (8209797877505222) Lipoma of left lower extremity (D17.24) Active confirmed Problem Lipoma of right uppe r limb (disorder) (0350095208829579) Lipoma of right upper extremity (D17.21) Active confirmed Problem Fibrocystic breast changes (87613311) Fibrocystic breast disease (FCBD), unspecified laterality (N60.19) Active confirmed Problem Allergic rhinitis (14368890) Non-seasonal allergic rhinitis, unspecified trigger (J30.89) Active confirmed Problem Lipoma (74099767) Multiple lipom as (D17.9) Active confirmed Problem Lipoma of lower limb (621070317) Lipoma of right lower extremity (D17.23) Active confirmed Problem Postprocedural state s (992862146) History of facial surgery (Z98.890) Active confirmed Problem Degeneration of intervertebral disc of lumbar region with discogenic back pain and lower extremity pain (M51.362) Active confirmed Vital Signs Heart Rate 91 /min 01/13/2025 Blood pressure diastolic 80 mm Hg 01/13/2025 Height 65 in 01/13/2025 Blood pressure systolic 122 mm Hg 01/13/2025 Weight 182 lbs 01/13/2025 BMI 30.28 kg/m2 01/13/2025 Encounters Encounter Location Date [facility] [address] [place] [id number] 01/17/2024 Hemant Velez Essential hypertensi on I10 ; Mixed hyperlipidemia E78.2 and Encounter for screening for coronary artery disease Z13.6 [facility] [address] [place] [id number] 04/04/2024 Christopher Lechuga Spinal stenosis of lumbosacral region M48.07 ; Degeneration of intervertebral disc of lumbar region with discogenic back pain and lower extremity pain M51.362 and Essential hypertension I10 [facility] [address] [place] [id number] 05/05/2024 Christopher Lechuga Protrusion of intervertebral disc of lumbosacral region M51.27 and Spinal stenosis of lumbosacral region M48.07 [facility] [address] [place] [id number] 06/16/2024 Christopher Lechuga Spinal stenosis of lumbosacral region M48.07 ; Degeneration of intervertebral disc of lumbar region with discogenic back pain and lower extremity pain M51.362 and Situational depression F43.21 [facility] [address] [place] [id number] 07/14/2024 Christopher Lechuga Degeneration of intervertebral disc of lumbar region with discogenic back pain and lower extremity pain M51.362 and Spinal stenosis of lumbosacral region M48.07 [facility] [address] [place] [id number] 09/25/2024 Christopher Lechuga Lumbosacral disc dis ease M51.9 ; Protrusion of intervertebral disc of lumbosacral region M51.27 ; Degeneration of intervertebral disc of lumbar region with discogenic back pain and lower extremity pain M51.362 ; S/P spinal fusion Z98.1 and BMI 31.0-31.9,adult Z68.31 [facility] [address] [place], [place] [id number] 11/27/2024 J Ritesh Lechuga Fusion of spine of lumbar region M43.26 [facility] [address] [place], [place] [id number] 12/05/2024 Christopher Lechuga Hyperkalemia E87.5 a nd Chronic fatigue R53.82 [facility] [address] [place], [place] [id number] 01/13/2025 Hemant [place] Nausea R11.0 and RUQ abdominal pain R10.11 [facility] [address] [place], [place] [id number] 01/14/2025 Hemant [place] [facility] [address] [place], [place] [id number] 01/31/2024 Christopher Lechuga [facility] [address] [place], [place] [id number] 04/07/2024 Christopher Lechuga Hyperkalemia E87.5 [facility] [address] [place], [place] [id number] 04/28/2024 Christopher Lechuga Essential hypertensi on I10 [facility] [address] [place], [place] [id number] 08/18/2024 Hemant [place] Depression with anxi ety F41.8 [facility] [address] [place], [place] [id number] 11/03/2024 Christopher Lechuga Spinal stenosis of lumbosacral region M48.07 [facility] [address] [place], [place] [id number] 12/16/2024 Christopher Lechuga Screening for breast cancer Z12.39 Assessments Encounter Date Diagnosis (ICD Code) Assessment Notes Treatment Notes Treatment Clinical Notes Section Notes 01/17/2024 Essential hypertension (ICD-10 - I10) 01/17/2024 Mixed hyperlipidemia (ICD-10 - E78.2) Stress test report from [facility] reviewed in office today. Recent abnormal lipid [...] Screening for breast cancer (ICD-10 - Z12.39) 01/13/2025 RUQ abdominal pain (ICD-10 - R10.11) 01/13/2025 Nausea (ICD-10 - R11.0) 09/25/2024 Degeneration of intervertebral disc of lumbar [...] Test Test Name Order Date BMP 04/07/2024 Ultrasound : Abdomen limited 01/13/2025 Insurance Providers Payer Name Payer Address Payer Phone Subscriber Number Group Number Insured Name Patient Relationship to Insured Coverage Start Date Coverage End Date MADDIE OLIVAS [employer] [address] [place] [address] [phone] [id number] SID LOVELACE Spouse - patient is the spouse of [...] Fibrocystic Breast Disease depression anxiety allergic rhinitis Colon polyps Surgical History Surgery Date(Month/Year) Hysterectomy RT Breast Biopsy-benign Lithotripsy Sinus 07/15/2007 Disc Surgery, Dr. 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
--- OUTSIDE RECORDS SUMMARY | 2025-01-15 08:32 | XMS_ITS | Clinical Summary ---
Author Organization Healthcare Address [address] [place] [address] Care Team Providers Care Nursing Support Worker Name Role Phone Unavailable Primary Care Provider [...] 2015 UKY-Zoster Vaccines (1 of 2) 2015 [id number] Vaccine (1 - 20 24-25 season) 2024 [...]
== END 2025-01-15 23:59 | disposition home or self-care (01) ==
LOC: RAD 08:17
PROVIDERS: PCP Family Medicine; Visit Provider Family Medicine
DX: R10.11 Right upper quadrant pain (principal); R11.0 Nausea
CPT/HCPCS: 76705

== ENCOUNTER 2025-01-26 09:13 | Outpatient (CLI) | payer BC, SELFPAY ==
--- NOTE | 2025-01-26 09:15 | NM_ITS ---
FINAL REPORT CLINICAL HISTORY: RUQ ABD PAIN COMPARISON: None FINDINGS: Sequential anterior projection images of the abdomen were obtained after the intravenous injection of 8.21 mCi technetium 99m Choletec. There is normal uptake of radiotracer by the liver. The bile ducts are visualized by 5 minutes. Gallbladder activity is seen by 10 minutes. Bowel activity is noted by 40 minutes. After 1 hour, 1.7 ?g of CCK was injected intravenously for calculation of gallbladder ejection fraction. The gallbladder ejection fraction is 98%, which is within normal limits. IMPRESSION: No evidence of cystic duct or bile duct obstruction. Normal gallbladder ejection fraction of 98%. Reviewed, Interpreted and Dictated by Marianna Deutsch MD Transcribed by Christina Butler Authenticated and [facility]
--- OUTSIDE RECORDS SUMMARY | 2025-01-26 09:24 | XMS_ITS | Clinical Summary ---
Author Organization Healthcare Address [address] [place] [address] Care Team Providers Care Accountant Machine Processing Name Role Phone Unavailable Primary Care Provider [...] 2015 UKY-Zoster Vaccines (1 of 2) 2015 [id number]-33 Vaccine (1 - 20 24-25 season) 2025 UKY-Influenza Vaccine (#1) 2025 HPV Vaccines Aged [...]
--- OUTSIDE RECORDS SUMMARY | 2025-01-26 09:24 | XMS_ITS | Clinical Summary ---
[facility] Address [address] [place] [address] Care Team Providers Care Six Horse Hitch Driver Name Role Phone Isaac Lechuga MD Primary Care Provider [phone] Allergies No known active allergies Medications metoprolol [...] negative. No psoriasis. 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2007 [...] Department Care Team Description 11/10/2024 Results Follow-Up [facility] [address] [place] [phone] David Banuelos MD 11/07/2024 9:30 AM EDT Office Visit [facility] [address] [phone] David Banuelos MD Generalized osteoarthrosis, involving multiple [...] Description 05/11/2025 1:30 PM EST Office Visit [facility] [address] [address] Shelly Hurst APRN 330 [facility] [address] [place] [address] Scheduled Procedures Name Priority Associated [...] SCREENING 10/19/2016 COVID-19 Vaccine ( - season) 2025 INFLUENZA VACCINE 02/18/2025 TDAP/TD VACCINES (2 - Td or Tdap) 07/03/2028 019 Medical Devices Implanted Type Area Child Adolescent Psychiatrist Device Identifier Shelf Expiration Date Model / Serial / Lot Cage Bengal/Std 7d 4mm - [id number] Implanted:Qty: 3 on 04/24/2017 by Jason Baires MD at [facility] Implant DEPUY SPINE [id number] / / Plt Ojai 3lvl 6hl 45mm - [id number] Implanted:Qty: 1 on 04/24/2017 by Jason Baires MD at [facility] Implant DEPUY SPINE [id number] / / Scrw Ojai Alexis Sd 14mm - [id number] Implanted:Qty: 1 on 04/24/2017 by Jason Baires MD at [facility] Implant DEPUY SPINE [id number] / / Scrw Ojai Alexis Sd 15mm - [id number] Implanted:Qty: 7 on 04/24/2017 by Jason Baires MD at [facility] Implant DEPUY SPINE [id number] / / Procedures Procedure Name Priority Date/Time [...] 11/07/2024 8:07 PM EDT Performed at: [address] [id number] Grievance Coordinator: Lenny Gomez MD, Phone: [phone] Patient Fasting: N us David Banuelos MD LAB BLOOD ORDERABLES Final Result [facility] ([facility]) [address] [place] [address], [facility] [address] [place] [address], * CBC & Differential (11/07/2024 10:19 AM [...] - 11/07/2024 8:07 PM EDT Performed at: [address] [place] [address] [address] [place], [place] [id number] Grievance Coordinator: Lenny Gomez MD, Phone: [phone] Patient Fasting: N us David Banuelos MD LAB BLOOD ORDERABLES Final Result Performing Organization Address [facility] Co de Phone Number [facility] ([facility]) [address] [place] [address], [facility] [address] [place] [address], * C-reactive Protein (11/07/2024 10:19 AM EDT) [facility] C-Reactive Protein <0.30 0.00 - 0.50 mg/dL [facility] Blood 11/07/2024 10:1 9 AM EDT 11/07/2024 Narrative [facility] ([facility]) - 11/07/2024 8:07 PM EDT Performed at: [address] [place] [id number] Grievance Coordinator: Lenny Gomez MD, Phone: [phone] Patient Fasting: N us David Banuelos MD LAB BLOOD ORDERABLES Final Result Performing Organization Address [facility] Co de Phone Number [facility] ([facility]) [address] [place] [address], [facility] [address] [place] [address], * (ABNORMAL) Comprehensive Metabolic Panel (11/07/2024 10:19 AM EDT) Pathologist [facility] Glucose 96 65 - 99 mg/dL [facility] [...] - 11/07/2024 8:07 PM EDT Performed at: [address] [place] [id number] Grievance Coordinator: Lenny Gomez MD, Phone: [phone] Patient Fasting: N David Banuelos MD LAB BLOOD ORDERABLES Final Result [facility] [address] [place] [address], [facility] [address] [place] [address], [place] [phone] from Last 3 Months Insurance Advance Directives * Full Code (Latest Code Status on File) Date Activated Date Inactivated Comments 04/24/2017 12:19 PM 04/25/2017 6:16 PM Care Teams Six Horse Hitch Driver Relationship Specialty Start Date End Date Isaac Lechuga MD [address] [facility] [address] [place] [address] PCP - General Family Medicine 11/10/16
--- OUTSIDE RECORDS SUMMARY | 2025-01-26 09:24 | XMS_ITS | Referral Summary ---
Author Organization [employer] ([place], [place], [place], [place]) Address [address] [place] [address] Care Team Providers Care Artificial Limb Maker Name Role Phone Ritesh Lechuga MD Primary Care Provider [phone] Allergies No known active allergies Medications buPROPion [...] on file Legal Sex Female 9:06 AM ALLERGY NURSE Gender Identity Not on file Sexual Orientation [...] on file Medical Devices Implanted Type Area Disaster Recovery Specialist Device Identifier Shelf Expiration Date Model / Serial / Lot Bone Matrx Vivigen Prefilled -1900-001 - [id number] Implanted:Qty: 1 on 08/21/2024 by Lenny Sexton MD at [facility] IMPLANTS N/A: Spine Lumbar LIFENET:LIFENET TRANSPLANT SRV 06/18/2025 [id number] / [id number] / Fibergraft Mtrx 6.25cc [id number] - [id number] Implanted:Qty: 1 on 08/21/2024 by Lenny Sexton MD at [facility] N/A: Spine Lumbar J &J:DEPUY:DEPUY SPINE 01/15/2027 [id number] / / [id number] Sealant Durasl Spine 5ml 023189 - [id number] Implanted:Qty: 1 on 08/21/2024 by Lenny Sexton MD at [facility] N/A: Spine Lumbar MEDTRONIC MIN INV THERAPY GRP 03/20/[id number] / / [id number] Cage T/Plif 13mm Eit 8d 13/02 [id number] - [id number] Implanted:Qty: 1 on 08/21/2024 by Lenny Sexton MD at [facility] N/A: Spine Lumbar J &J:DEPUY:DEPUY SPINE 03/20/2034 [id number] / / [id number] Cage Eit Plif H 11mm 8d 13/02 [id number] - [id number] Implanted:Qty: 1 on 08/21/2024 by Lenny Sexton MD at [facility] N/A: Spine Lumbar J &J:DEPUY:DEPUY SPINE 09/17/2028 [id number] / / [id number] Scr Spne Don Fix 7x50mm - [id number] Implanted:Qty: 5 on 08/21/2024 by Lenny Sexton MD at [facility] N/A: Spine Lumbar J &J:DEPUY:DEPUY SPINE / / Scr Spne Don Fix 7x45mm - [id number] Implanted:Qty: 1 on 08/21/2024 by Lenny Sexton MD at [facility] N/A: Spine Lumbar J &J:DEPUY:DEPUY SPINE 5 / / Mis Alesha Ply Scrw Set Ti - [id number] Implanted:Qty: 6 on 08/21/2024 by Lenny Sexton MD at [facility] N/A: Spine Lumbar J &J:DEPUY:DEPUY SPINE / / Albetro Pre Load 75mm - [id number] Implanted:Qty: 2 on 08/21/2024 by Lenny Sexton MD at [facility] N/A: Spine Lumbar J &J:DEPUY:DEPUY SPINE / / Insurance BLUE CROSS/BLUE SHIELD Advance Directives For more information, please contact: [phone] * Full Code (Latest Code Status on File) Date Activated Date Inactivated Comments 08/21/2024 10:55 AM 08/26/2024 4:28 PM Care Teams Artificial Limb Maker Relationship Specialty Start Date End Date Ritesh Lechuga MD [address] [address] PCP - General Neurology 08/14/24
--- OUTSIDE RECORDS SUMMARY | 2025-01-26 09:24 | XMS_ITS | Clinical Summary ---
Author Organization [employer] ([place], [place], [place], [place]) Address [address] [place] [address] Care Team Providers Care Advisory Services Associate Name Role Phone Ritesh Lechuga MD Primary Care Provider [phone] Allergies No known active allergies Medications buPROPion [...] on file Legal Sex Female 9:06 AM TIMBER ESTIMATOR Gender Identity Not on file Sexual Orientation [...] of 2) 2015 COVID-19 VACCINE ( season) 2025 03/26/2021, 09/03/2020, 08/03/2020 Influenza Vaccine (#1) 2025 Tobacco Cessation Counseling and Screening (12+) 08/21/2025 08/21/2024 DTAP/TDAP/TD VACCINES (2 - T d or Tdap) 07/03/2028 07/03/2018 Medical Devices Implanted Type Area Construction Project Mgr Device Identifier Shelf Expiration Date Model / Serial / Lot Bone Matrx Vivigen Prefilled Bl-1900-001 - [id number] Implanted:Qty: 1 on 08/21/2024 by Lenny Sexton MD at [facility] IMPLANTS N/A: Spine Lumbar LIFENET:LIFENET TRANSPLANT SRV 06/18/2025 BL-1900-001 / [id number] / Fibergraft Mtrx 6.25cc [id number] - [id number] Implanted:Qty: 1 on 08/21/2024 by Lenny Sexton MD at [facility] N/A: Spine Lumbar J &J:DEPUY:DEPUY SPINE 01/15/2027 [id number] / / [id number] Sealant Durasl Spine 5ml [id number] - [id number] Implanted:Qty: 1 on 08/21/2024 by Lenny Sexton MD at [facility] N/A: Spine Lumbar MEDTRONIC MIN INV THERAPY GRP 03/20/[id number] / / [id number] Cage T/Plif 13mm Eit 8d 13/02 [id number] - [id number] Implanted:Qty: 1 on 08/21/2024 by Lenny Sexton MD at [facility] N/A: Spine Lumbar J &J:DEPUY:DEPUY SPINE 03/20/2034 [id number] / / [id number] Cage Eit Plif H 11mm 8d 13/02 [id number] - [id number] Implanted:Qty: 1 on 08/21/2024 by Lenny Sexton MD at [facility] N/A: Spine Lumbar J &J:DEPUY:DEPUY SPINE 09/17/2028 [id number] / / [id number] Scr Spne Don Fix 7x50mm - Implanted:Qty: 5 on 08/21/2024 by Lenny Sexton MD at [facility] N/A: Spine Lumbar J &J:DEPUY:DEPUY SPINE / / Scr Spne Don Fix 7x45mm - [id number] Implanted:Qty: 1 on 08/21/2024 by Lenny Sexton MD at [facility] N/A: Spine Lumbar J &J:DEPUY:DEPUY SPINE / / Mis Alesha Ply Scrw Set Ti - [id number] Implanted:Qty: 6 on 08/21/2024 by Lenny Sexton MD at [facility] N/A: Spine Lumbar J &J:DEPUY:DEPUY SPINE / / Alberto Pre Load 75mm [id number] - [id number] Implanted:Qty: 2 on 08/21/2024 by Lenny Sexton MD at [facility] N/A: Spine Lumbar J &J:DEPUY:DEPUY SPINE / / Insurance BLUE CROSS/BLUE SHIELD Advance Directives For more information, please contact: [phone] * Full Code (Latest Code Status on File) Date Activated Date Inactivated Comments 08/21/2024 10:55 AM 08/26/2024 4:28 PM Care Teams Advisory Services Associate Relationship Specialty Start Date End Date Ritesh Lechuga MD [address] [facility] [address] [place] [address] PCP - General Neurology 08/14/24
--- OUTSIDE RECORDS SUMMARY | 2025-01-26 09:24 | XMS_ITS | Encounter Summary ---
Author Organization [facility] Address [address] [place] [address] Care Team Providers Care Pigskin Trimmer Name Role Phone Isaac Lechuga MD Primary Care Provider [phone] Encounter Details Date Type Department Care Team (Late Contact Info) Description 11/10/2024 Results Follow-Up [facility] [address] [place] [phone] David Banuelos MD [address] [place] [address] [id number] Social History Tobacco Use Types Packs/Day Years [...] Description 05/11/2025 1:30 PM EST Office Visit [facility] [address] [place] [phone] Shelly Hurst APRN [phone] [id number] Scheduled Procedures Name Priority Associated Diagnoses Date/Ti me CV MYELOGRAM LUMBAR SPINE HNP (herniated nucleus pulposus), lumbar 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
[2025-01-26] MEDS: SODIUM CHLORIDE 0.9% 10ML SYR (RAD ONLY) 10 ML IV (09:45)
[2025-01-26] MEDS: SINCALIDE 1.7 MCG in 0.9 % SODIUM CHLORIDE 50 ML 100 MCG IV (14:04)
[2025-01-26] MEDS: ISOTOPE CHOLETECH;1 DOSE (UP TO 15 MCI) IV (14:05)
== END 2025-01-26 23:59 | disposition home or self-care (01) ==
LOC: RAD 09:13
PROVIDERS: PCP Family Medicine; Visit Provider Family Medicine
DX: R10.11 Right upper quadrant pain (principal); R74.8 Abnormal levels of other serum enzymes
CPT/HCPCS: 78227; A9537; J2805